=== PATIENT | male | born 1955 | race Caucasian/White ===

== ENCOUNTER → 2016-09-01 | Outpatient (CLI) | payer OTHER ==
--- NOTE | 2016-09-01 14:26 | CARD ---
APPROVED REPORT EXAM: Two-dimensional and M-mode echocardiogram with Doppler and color Doppler. Other Information Quality : Good INDICATION Atrial Fibrillation Thoracic Aortic Anuerysm 2D DIMENSIONS RVDd2.2 (2.9-3.5cm)Left Atrium(2D)3.9 (1.6-4.0cm) IVSd1.2 (0.7-1.1cm)Aortic Root(2D)4.1 (2.0-3.7cm) LVDd5.0 (3.9-5.9cm)LVOT Diameter2.2 (1.8-2.4cm) PWd1.2 (0.7-1.1cm)LVDs2.9 (2.5-4.0cm) FS (%) 30.0 %SV84.6 ml LVEF(%)60.0 (>50%) M-Mode DIMENSIONS Aortic Root4.16 (2.2-3.7cm) Aortic Valve AoV Peak Sai.102.2cm/sAoV VTI19.2cm AO Peak GR.4.2mmHgLVOT Peak Sai.105.9cm/s AO Mean GR.3mmHgAVA (VMAX)4.05cm2 TARYN (VTI)4.10cm2 Mitral Valve MV E Cmxenrog46.3cm/sMV DECEL FSAD580ay MV A Iysqavck64.2cm/sE/A Ratio0.6 Tricuspid Valve TR P. Rornxalo360mk/sRAP IVMPXNSG6zwGk TR Peak Gr.71qcHfVHDS68tjBg Pulmonary Vein S1 Awwrnhjr47.1cm/sD2 Cxrikjrv75.0cm/s PVa mtcfcgyy25kacv LEFT VENTRICLE The left ventricle is normal size. There is mild concentric left ventricular hypertrophy. The left ve ntricular systolic function is normal. The Ejection Fraction is 55-60%. There is normal LV segmental wall motion. Transmitral Doppler flow pattern is Grade I-abnormal relaxation pattern. RIGHT VENTRICLE The right ventricle is normal size. The right ventricular systolic function is normal. ATRIA The left atrium size is normal. The right atrium size is normal. The interatrial septum is intact wit h no evidence for an atrial septal defect or patent foramen ovale as noted on 2-D or Doppler imaging. AORTIC VALVE The aortic valve is normal in structure and function. Doppler and Color Flow revealed mild aortic reg urgitation. There is no significant aortic valvular stenosis. MITRAL VALVE The mitral valve is normal in structure and function. There is no evidence of mitral valve prolapse. There is no mitral valve stenosis. Doppler and Color-flow revealed trace mitral regurgitation. TRICUSPID VALVE The tricuspid valve is normal in structure and function. Doppler and Color Flow revealed trace tricus pid regurgitation. There is mild pulmonary hypertension. The PA pressure was estimated at 35 mmHg. Th ere is no tricuspid valve stenosis. PULMONIC VALVE The pulmonary valve is normal in structure and function. Doppler and Color Flow revealed trace to mil d pulmonic valvular regurgitation. There is no pulmonic valvular stenosis. GREAT VESSELS The aortic root is moderately enlarged at 4.2 cm. The ascending aorta is mildly dilated at 4.1 cm. Th e IVC is normal in size and collapses >50% with inspiration. PERICARDIAL EFFUSION There is no evidence of significant pericardial effusion. Critical Notification Critical Value: No <Conclusion> The left ventricular systolic function is normal. The Ejection Fraction is 55-60%. There is normal LV segmental wall motion. Transmitral Doppler flow pattern is Grade I-abnormal relaxation pattern. Mild aortic regurgitation. Trace mitral regurgitation. Trace tricuspid regurgitation. There is mild pulmonary hypertension. The PA pressure was estimated at 35 mmHg. There is no evidence of significant pericardial effusion.
== END | disposition home or self-care (01) ==
LOC: ECHO 12:53
PROVIDERS: ATTEND Internal Medicine Cardiovascular Disease
DX: I10 Essential (primary) hypertension (principal); I71.2 Thoracic aortic aneurysm, without rupture; I48.0 Paroxysmal atrial fibrillation
CPT/HCPCS: 93306

== ENCOUNTER → 2017-10-31 | Outpatient (CLI) | payer OTHER ==
[~2017-10-31] MED LIST: CONTRAST GIVEN MC
[2017-10-31] MEDS: IOHEXOL 300 MG/ML 100ML VIAL. IV (13:13)
== END | disposition home or self-care (01) ==
LOC: CT 12:14
DX: I71.2 Thoracic aortic aneurysm, without rupture (principal); I48.91 Unspecified atrial fibrillation; I25.10 Atherosclerotic heart disease of native coronary artery without angina pectoris
CPT/HCPCS: 71275; Q9967

== ENCOUNTER → 2018-09-20 | Outpatient (CLI) | payer OTHER ==
[2018-09-20 14:01] LABS: BASO % 0 % (0-3); EOS # 0.3 x10^3/uL (0.0-0.7); EOS % 6 % (0-3); HEMATOCRIT 45.7 % (39.0-53.0); HEMOGLOBIN 15.2 g/dL (13.0-17.5); LYMPH # 1.2 x10^3/uL (1.0-4.8); LYMPH % 25 % (24-48); MEAN CORPUSCULAR HEMOGLOBIN 29 pg (25-35); MEAN CORPUSCULAR HGB CONC 33 g/dL (31-37); MEAN CORPUSCULAR VOLUME 88 fL (79-100); MONO # 0.7 x10^3/uL (0.0-1.1); MONO % 13 % (0-9); NEUT # 2.8 x10^3uL (1.8-7.7); NEUT % 56 % (31-73); PLATELET COUNT 194 x10^3/uL (140-400); RED BLOOD COUNT 5.23 x10^6/uL (4.30-5.70); RED CELL DISTRIBUTION WIDTH 13.7 % (11.5-14.5)
[2018-09-20 14:17] LABS: ALBUMIN 3.6 g/dL (3.4-5.0); CALCIUM 9.1 mg/dL (8.5-10.1); GFR 75.7; TOTAL BILIRUBIN 1.5 mg/dL (0.2-1.0); TOTAL PROTEIN 7.2 g/dL (6.4-8.2)
[2018-09-20 14:38] LABS: CHOLESTEROL/HDL RATIO 4.2
== END | disposition home or self-care (01) ==
LOC: LAB 13:18
PROVIDERS: ATTEND Family Medicine
DX: Z00.00 Encounter for general adult medical examination without abnormal findings (principal); Z12.5 Encounter for screening for malignant neoplasm of prostate
CPT/HCPCS: 36415; 80053; 80061; 85025; G0103

== ENCOUNTER → 2019-05-22 | Day surgery (SDC) | payer OTHER ==
[~2019-05-22] MED LIST changes: -CONTRAST GIVEN MC; +DILT60CA PO; +IV RINGERS,LACTATED 1000ML 1,000 ML IV SCH; +METO-247 PO; +PROPOFOL 40 ML IV ONE; +RIVA20TA2 PO
[2019-05-22 13:01] VITALS: BP 125/71
--- NOTE | 2019-05-22 21:14 | CONS ---
DATE OF CONSULTATION: 05/22/2019 REFERRING PHYSICIAN: Ozzie Amezcua DO REASON FOR CONSULTATION: Colorectal screening. HISTORY OF PRESENT ILLNESS: A 64-year-old male with past medical history significant for atrial fibrillation, hypertension, status post ankle surgery and fistula surgery, seen for screening colon exam. Bowel habits are regular without diarrhea or constipation. There has been no melena and/or hematochezia. Weight and appetite are stable. Last colonoscopy over 10 years ago was unrevealing for polyps or cancers at that time. Family history is likewise unrevealing for colon cancer or colon polyps. He is otherwise without additional complaints. PAST MEDICAL HISTORY: Atrial fibrillation, hypertension, status post ankle surgery, status post fistula surgery. ALLERGIES: None. MEDICATIONS: Include diltiazem, metoprolol and Xarelto. FAMILY AND SOCIAL HISTORY: Noncontributory for colon cancer. He is a social drinker and nonsmoker: He is retired from the [employer] service. REVIEW OF SYSTEMS: HEENT: There is no decrease in hearing or visual acuity issues. CARDIAC: There is history of AFib and hypertension. PULMONARY: No shortness breath, productive cough or asthma. RENAL: No dysuria, frequency or hematuria. MUSCULOSKELETAL: No osteoarthrosis, arthralgias or myalgias. NEUROLOGIC: No stroke, migraine or neuropathy. HEMATOLOGIC: No bleeding, bruising or coagulopathy. DERMATOLOGIC: No skin rashes or pruritus. GASTROINTESTINAL: See history of present illness. PHYSICAL EXAMINATION: GENERAL: Reveals a well-nourished, well-developed male who is alert, cooperative, in no acute distress. VITAL SIGNS: Temperature 97.6, pulse ____, respiratory rate 18. HEENT: Reveals normocephalic, atraumatic head. Pupils and extraocular muscles are not tested. Sclerae anicteric. NECK: Supple. LUNGS: Clear. CARDIOVASCULAR: Reveals an S1, S2 without S3, S4 or appreciable murmur. ABDOMEN: Reveals a soft abdomen, normal bowel sounds, without appreciable hepatosplenomegaly. EXTREMITIES: Reveal no cyanosis, clubbing or edema. IMPRESSION AND PLAN: Colorectal screening is warranted at this time. Risks and benefits of procedure including risk of hemorrhage and perforation requiring operation were discussed. The patient is willing to proceed. Xarelto has been held since Sunday and will be resumed later today. Endoclips will be utilized if polypectomy is needed. Xarelto can be restarted to minimize the risk of thrombosis and bleeding. I would like to thank Dr. Ozzie Amezcua for allowing us to consult and participate in the patient's care. KATHY GONZALEZ MD DR: FARHAN/dorothy JOB#: [id number] / [id number] OZZIE Beckett DO
--- NOTE | 2019-05-23 14:07 | PATHOLOGY ---
[facility] Accession Number: [id number] . 01 Material submitted: . PART A: colon - ASCENDING COLON POLYP. Modifiers: ascending PART B: rectum - RECTAL POLYP . 01 Clinical history: . CRCS . 02 Diagnosis: A. Colon, ascending, biopsy: - Adenomatous polyps, two. . B. Colon, rectum, biopsy: - Hyperplastic polyps, two. (SKM:[facility]; 05/23/2019) QTP 05/23/2019 1238 Local . 02 Electronically signed: . Tonio Mckeon MD, Pathologist NPI- [id number] . 01 Gross description: . A. Received in formalin labeled "Knutson, Garland, ascending colon polyp," are 2 segments of arriaza soft tissue measuring 1.1 x 0.3 x 0.3 cm in aggregate dimensions and ranging from 0.5 to 0.6 cm in maximum dimension. The specimen is submitted entirely in cassette A1. . B. Received in formalin labeled "Knutson, Garland, rectal polyp," are 2 segments of arriaza soft tissue measuring 0.9 x 0.3 x 0.2 cm in aggregate dimensions and ranging from 0.4 to 0.5 cm in maximum dimension. The specimen is submitted entirely in cassette B1. ([facility]; 05/22/2019) TOB/TOB 05/22/2019 1834 Local . 02 Pathologist provided ICD-10: D12.2, K62.1 . 02 CPT . 767226, [id number] Specimen Comment: A courtesy copy of this report has been sent to Specimen Comment: [phone], . Specimen Comment: Report sent to / DR NETTLES Performed at: [address] [place], [place] [address] [address], [place], [place] [id number] MD Shiraz Adrian MD Phone: [phone] Performed at: [address] [id number] MD Jalil Kulkarni MD Phone: [phone]
== END ==
LOC: ENDOS 10:39
PROVIDERS: ATTEND Internal Medicine Gastroenterology
DX: Z12.11 Encounter for screening for malignant neoplasm of colon (principal); D12.2 Benign neoplasm of ascending colon; K62.1 Rectal polyp; K64.0 First degree hemorrhoids; K57.30 Diverticulosis of large intestine without perforation or abscess without bleeding; I48.91 Unspecified atrial fibrillation; I10 Essential (primary) hypertension; Z80.0 Family history of malignant neoplasm of digestive organs; Z83.71 Family history of colonic polyps; Z72.89 Other problems related to lifestyle; Z98.890 Other specified postprocedural states
CPT/HCPCS: 45380; 88305; J2704

== ENCOUNTER → 2019-08-27 | Outpatient (CLI) | payer OTHER ==
[2019-05-22 13:01] VITALS: BP 125/71
[~2019-08-27] MED LIST changes: -IV RINGERS,LACTATED 1000ML 1,000 ML IV SCH; -PROPOFOL 40 ML IV ONE
[2019-08-27 16:44] LABS: BASO % 1 % (0-3); EOS # 0.3 x10^3/uL (0.0-0.7); EOS % 6 % (0-3); HEMATOCRIT 47.1 % (39.0-53.0); HEMOGLOBIN 15.8 g/dL (13.0-17.5); LYMPH # 1.2 x10^3/uL (1.0-4.8); LYMPH % 23 % (24-48); MEAN CORPUSCULAR HEMOGLOBIN 30 pg (25-35); MEAN CORPUSCULAR HGB CONC 34 g/dL (31-37); MEAN CORPUSCULAR VOLUME 89 fL (79-100); MONO # 0.6 x10^3/uL (0.0-1.1); MONO % 12 % (0-9); NEUT # 3.2 x10^3/uL (1.8-7.7); NEUT % 59 % (31-73); PLATELET COUNT 183 x10^3/uL (140-400); RED BLOOD COUNT 5.32 x10^6/uL (4.30-5.70); RED CELL DISTRIBUTION WIDTH 13.7 % (11.5-14.5); WHITE BLOOD COUNT 5.4 x10^3/uL (4.0-11.0)
[2019-08-27 17:00] LABS: ALBUMIN 3.9 g/dL (3.4-5.0); ALBUMIN/GLOBULIN RATIO 1.2 (1.0-1.7); CALCIUM 8.8 mg/dL (8.5-10.1); GFR 75.5; POTASSIUM 4.5 mmol/L (3.5-5.1); TOTAL BILIRUBIN 1.5 mg/dL (0.2-1.0); TOTAL PROTEIN 7.2 g/dL (6.4-8.2)
[2019-08-27 17:01] LABS: CHOLESTEROL/HDL RATIO 5.1
== END | disposition home or self-care (01) ==
LOC: LAB 16:16
PROVIDERS: ATTEND Family Medicine
DX: Z12.5 Encounter for screening for malignant neoplasm of prostate (principal); Z00.00 Encounter for general adult medical examination without abnormal findings
CPT/HCPCS: 36415; 80053; 80061; 84153; 85025; G0103

== ENCOUNTER → 2020-04-23 | Outpatient (CLI) | payer OTHER ==
[2019-05-22 13:01] VITALS: BP 125/71
--- NOTE | 2020-04-23 17:57 | RAD ---
MR#: [id number] Date of Study: 04/23/2020 Ordering Physician: KIRT WALKER, Referring Physician: KIRT WALKER, Tech: Jessica Huntley, YOCASTA, RVT, RTR APPROVED REPORT Patient Location : OUT-PATIENT Indications Lower Extremity Edema : Bilateral Lesser Saphenous Veins (LSV) Significant venous reflux is noted in the Left LSV. Findings Bilateral greater saphenous veins have been previously ablated. The saphenofemoral junctions are unr emarkable but do show evidence of reflux of greater than 1 second. No obvious perforators noted. The left lesser saphenous vein has reflux from the knee to the ankle of greater than 1 second and eamon sures approximately 4.4 mm. The right lesser saphenous vein is not visualized. Critical Notification Critical Value: No <Conclusion> 1. Presumed bilateral previous greater saphenous vein ablations 2. Positive for reflux in the left lesser saphenous vein. The right lesser saphenous vein was not v isualized. Signed by : Caleb Murillo, Electronically Approved : 04/23/2020 17:57:49
--- NOTE | 2020-04-23 17:58 | RAD ---
MR#: [id number] Date of Study: 04/23/2020 Ordering Physician: KIRT WALKER, Referring Physician: KIRT WALKER, Tech: Jessica Huntley, YOCASTA, RVT, RTR APPROVED REPORT Bilateral Lower Extremity Venous Study for DVT Patient Location: OUT-PATIENT Indications Lower Extremity Edema: Bilateral Findings The bilateral lower extremity deep veins were evaluated for thrombus with color Doppler, spectral and grayscale images. On the right the grayscale images of the common femoral, superficial femoral and popliteal veins do n ot demonstrate any evidence of thrombus and these veins appear to be compressible. The below-knee vei ns were not well visualized but grossly appear to be compressible. Spectral imaging and color Doppler do not reveal any evidence of obstruction to flow with normal respirophasic variation above the knee . Below the knee there is spontaneous flow noted. On the left, the grayscale images of the common femoral, superficial femoral and popliteal veins do n ot demonstrate any evidence of thrombus and these veins appear to be compressible. The below-knee vei ns again were not well visualized but grossly appear to be compressible. Spectral imaging and color D oppler do not reveal any evidence of obstruction to flow with normal respirophasic variation above th e knee. The below-knee veins demonstrate spontaneous flow. Critical Notification Critical Value: No <Conclusion> 1. Negative for DVT in the bilateral lower extremities. Signed by : Caleb Murillo, Electronically Approved : 04/23/2020 17:58:42
== END | disposition home or self-care (01) ==
LOC: US 12:53
PROVIDERS: ATTEND Internal Medicine Cardiovascular Disease
DX: R22.43 Localized swelling, mass and lump, lower limb, bilateral (principal); M79.89 Other specified soft tissue disorders
CPT/HCPCS: 93970

== ENCOUNTER → 2020-07-30 | Outpatient (CLI) | payer OTHER ==
[2019-05-22 13:01] VITALS: BP 125/71
[2020-07-30 12:29] LABS: BASO % 1 % (0-3); EOS # 0.2 x10^3/uL (0.0-0.7); EOS % 3 % (0-3); HEMATOCRIT 42.7 % (39.0-53.0); HEMOGLOBIN 14.6 g/dL (13.0-17.5); LYMPH # 1.1 x10^3/uL (1.0-4.8); LYMPH % 19 % (24-48); MEAN CORPUSCULAR HEMOGLOBIN 30 pg (25-35); MEAN CORPUSCULAR HGB CONC 34 g/dL (31-37); MEAN CORPUSCULAR VOLUME 87 fL (79-100); MONO # 0.8 x10^3/uL (0.0-1.1); MONO % 13 % (0-9); NEUT # 3.8 x10^3/uL (1.8-7.7); NEUT % 65 % (31-73); PLATELET COUNT 172 x10^3/uL (140-400); RED BLOOD COUNT 4.89 x10^6/uL (4.30-5.70); RED CELL DISTRIBUTION WIDTH 14.4 % (11.5-14.5); WHITE BLOOD COUNT 5.9 x10^3/uL (4.0-11.0)
[2020-07-30 12:51] LABS: ALBUMIN 3.7 g/dL (3.4-5.0); ALBUMIN/GLOBULIN RATIO 1.1 (1.0-1.7); CALCIUM 8.6 mg/dL (8.5-10.1); GFR 75.2; POTASSIUM 4.2 mmol/L (3.5-5.1); TOTAL BILIRUBIN 1.6 mg/dL (0.2-1.0); TOTAL PROTEIN 7.1 g/dL (6.4-8.2)
[2020-07-30 12:52] LABS: CHOLESTEROL/HDL RATIO 3.6
[2020-07-31 02:10] LABS: HEMOGLOBIN A1C 5.6 % (4.8-5.6)
== END ==
LOC: US 11:43
PROVIDERS: ATTEND Internal Medicine Cardiovascular Disease
DX: Z12.5 Encounter for screening for malignant neoplasm of prostate (principal); E78.5 Hyperlipidemia, unspecified; R22.43 Localized swelling, mass and lump, lower limb, bilateral
CPT/HCPCS: 36415; 80053; 80061; 83036; 85025; G0103

== ENCOUNTER 2020-08-27 21:52 | Inpatient (IN) | payer OTHER ==
[~2020-08-27] VITALS: Ht 180.3 cm; Wt 106.5 kg
[2020-08-27 22:16] LABS: BASO % 0 % (0-3); EOS % 0 % (0-3); HEMATOCRIT 41.3 % (39.0-53.0); HEMOGLOBIN 13.5 g/dL (13.0-17.5); LYMPH # 0.9 x10^3/uL (1.0-4.8); LYMPH % 6 % (24-48); MEAN CORPUSCULAR HEMOGLOBIN 29 pg (25-35); MEAN CORPUSCULAR HGB CONC 33 g/dL (31-37); MEAN CORPUSCULAR VOLUME 89 fL (79-100); MONO # 1.4 x10^3/uL (0.0-1.1); MONO % 9 % (0-9); NEUT # 12.9 x10^3/uL (1.8-7.7); NEUT % 84 % (31-73); PLATELET COUNT 184 x10^3/uL (140-400); RED BLOOD COUNT 4.63 x10^6/uL (4.30-5.70); RED CELL DISTRIBUTION WIDTH 14.9 % (11.5-14.5); WHITE BLOOD COUNT 15.3 x10^3/uL (4.0-11.0)
[2020-08-27 22:22] LABS: CALCIUM 8.9 mg/dL (8.5-10.1); GFR 75.2; POTASSIUM 4.4 mmol/L (3.5-5.1)
[2020-08-27 22:57] LABS: % LYMPHS 2 % (24-48); % MONOS 8 % (0-10); % SEGS 90 % (35-66); PLT ESTIMATE ADEQUATE (ADEQUATE)
[2020-08-27 22:58] LABS: POLYCHROMASIA SLIGHT
[2020-08-27 23:00] LABS: TOXIC GRANULATION SLIGHT
[2020-08-27] MEDS ORDERED: MORPHINE SULFATE 10 MG/ML VIAL. IV ONE (23:00)
--- NOTE | 2020-08-27 23:21 | RAD ---
INDICATION: Reason: chest pain / Spl. Instructions: / History: COMPARISON: October 31, 2017 FINDINGS: Single view of chest obtained. Cardiac silhouette is unremarkable. Repeat demonstration of numerous calcified granulomas bilaterally . Mild blunting of the costophrenic angles posteriorly. Degenerative changes of spine. IMPRESSION: * No definite focal airspace consolidation. * Mild blunting of costophrenic angles posteriorly which could be from pleural thickening or small p leural effusion Electronically signed by: Lizandro French MD (08/27/2020 11:06 PM) [id number]
[2020-08-28] VITALS (17 sets, daily range): BP systolic 113–161; BP diastolic 72–105
--- NOTE | 2020-08-28 00:10 | ED.ADGEN ---
Past Medical History Past Medical History: A-Fib, Hypertension Past Surgical History: Other Additional Past Surgical Histo: ablation Smoking Status: Former Smoker Alcohol Use: Heavy General Adult EDM: Chief Complaint: CHEST PAIN HPI: HPI: Patient is 65-year-old male who presents to the emergency room complaining of substernal chest pain that feels like pressure. It radiates to both sides of his chest intermittently. He rates his pain as an 8 out of 10. He states that he had an ablation done yesterday at [facility]. He states the ablation went well. He did not have any pain until about an hour ago. He states he did drink a single beer this evening. He denies any vomiting or abdominal pain. He has not had any kind of cough or shortness of breath. He has never had chest pain previously. He has not tried anything for his pain at home. Review of Systems: Review of Systems: Complete ROS is negative unless otherwise documented in HPI Current Medications: Current Medications Medications (Trade) Dose Ordered Sig/Hilda Start Time Stop Time Status Last Admin Dose Admin Morphine Sulfate (Morphine Sulfate) 2 mg PRN Q2HR PRN 08/28/20 00:15 08/29/20 00:14 Allergies: Allergies: Allergies Coded Allergies Type Severity Reaction Last Updated Verified No Known Drug Allergies 05/22/19 No Physical Exam: PE: General: Awake, alert, NAD. Well Nourished, well hydrated. Cooperative HEENT: Atraumatic, EOMI, PERRL, airway patent, moist oral mucosa Neck: Supple, trachea midline Respiratory: CTA bilaterally, normal effort, no wheezing/crackles CV: RRR, no murmur, cap refill <2 GI: Soft, nondistended, nontender, no masses MSK: No obvious deformities Skin: Warm, dry, intact Neuro: A&O x3, speech NL, sensory and motor grossly intact, no focal deficits Psych: Normal affect, normal mood, not suicidal or homicidal Current Patient Data: Labs: Laboratory Tests Test 08/27/20 22:03 White Blood Count 15.3 x10^3/uL (4.0-11.0) H Red Blood Count 4.63 x10^6/uL (4.30-5.70) Hemoglobin 13.5 g/dL (13.0-17.5) Hematocrit 41.3 % (39.0-53.0) Mean Corpuscular Volume 89 fL (79-100) Mean Corpuscular Hemoglobin 29 pg (25-35) Mean Corpuscular Hemoglobin Concent 33 g/dL (31-37) Red Cell Distribution Width 14.9 % (11.5-14.5) H Platelet Count 184 x10^3/uL (140-400) Neutrophils (%) (Auto) 84 % (31-73) H Lymphocytes (%) (Auto) 6 % (24-48) L Monocytes (%) (Auto) 9 % (0-9) Eosinophils (%) (Auto) 0 % (0-3) Basophils (%) (Auto) 0 % (0-3) Neutrophils # (Auto) 12.9 x10^3/uL (1.8-7.7) H Lymphocytes # (Auto) 0.9 x10^3/uL (1.0-4.8) L Monocytes # (Auto) 1.4 x10^3/uL (0.0-1.1) H Eosinophils # (Auto) 0.0 x10^3/uL (0.0-0.7) Basophils # (Auto) 0.0 x10^3/uL (0.0-0.2) Segmented Neutrophils % 90 % (35-66) H Lymphocytes % 2 % (24-48) L Monocytes % 8 % (0-10) Toxic Granulation Slight Platelet Estimate Adequate (ADEQUATE) Polychromasia Slight Sodium Level 136 mmol/L (136-145) Potassium Level 4.4 mmol/L (3.5-5.1) Chloride Level 98 mmol/L (98-107) Carbon Dioxide Level 24 mmol/L (21-32) Anion Gap 14 (6-14) Blood Urea Nitrogen 22 mg/dL (8-26) Creatinine 1.0 mg/dL (0.7-1.3) Estimated GFR (Cockcroft-Gault) 75.2 Glucose Level 107 mg/dL (70-99) H Calcium Level 8.9 mg/dL (8.5-10.1) Troponin I Quantitative 2.309 ng/mL (0.000-0.055) Laboratory Tests 08/27/20 22:03 Laboratory Tests 08/27/20 22:03 Vital Signs: Vital Signs Date Time Temp Pulse Resp B/P (MAP) Pulse Ox O2 Delivery O2 Flow Rate FiO2 08/28/20 00:33 65 137/87 (104) 95 08/27/20 23:31 18 Room Air 08/27/20 22:12 98.1 98.1 EKG: EKG: [] Heart Score: Risk Factors: Risk Factors: DM, Current or recent (<one month) smoker, HTN, HLP, family history of CAD, obesity. Risk Scores: Score 0 - 3: 2.5% MACE over next 6 weeks - Discharge Home Score 4 - 6: 20.3% MACE over next 6 weeks - Admit for Clinical Observation Score 7 - 10: 72.7% MACE over next 6 weeks - Early Invasive Strategies Radiology/Procedures: Radiology/Procedures: [] Course & Med Decision Making: Course & Med Decision Making Pertinent Labs and Imaging studies reviewed. (See chart for details) Patient 65-year-old male who presents to the emergency room complaining of chest pain. Patient did have an ablation done yesterday. He is in normal sinus rhythm. Cardiac work-up was ordered. EKG is normal. Patient has an elevated troponin. This may be due to the ablation that he had yesterday, however patient continues to have chest pain. Given this will admit him for cardiac e valuation by cardiology. Will trend troponins. Dragon Disclaimer: Montse Disclaimer: This electronic medical record was generated, in whole or in part, using a voice recognition dictation system. Departure Departure Impression: Primary Impression: Chest pain Additional Impression: Elevated troponin Disposition: ADMITTED INPT THIS HOSP Condition: IMPROVED Referrals: OZZIE NETTLES DO (PCP) Problem Qualifiers PAMELA WALLACE MD Aug 28, 2020 00:10
[2020-08-28] MEDS ORDERED: MORPHINE SULFATE 2 MG/ML VIAL. IV PRN (00:15)
--- NOTE | 2020-08-28 01:00 | NUR ---
The patient, POLA REYES, 65 y/o, M admitted by ELAINE MEYERS MD, was given written information regarding hospital policies, unit procedures and contact persons. assessment done, meds discussed, as well as poc. Valuables were checked and documented in the emr. lcrn.
[2020-08-28] MEDS ORDERED: ACETAMINOPHEN 650 MG SUPP.RECT. PR PRN (06:00)
[2020-08-28] MEDS ORDERED: ACETAMINOPHEN 325 MG TABLET. PO PRN ×2 (06:00→07:15)
[2020-08-28] MEDS ORDERED: ONDANSETRON PF 4 MG/2 ML VIAL. IV PRN (06:00)
--- NOTE | 2020-08-28 06:07 | NUR ---
spoke with dr alfonso about pt's situation. see order. pradeep Addendum: 08/28/20 at 0754 by Alma Eid RN above on wrong pt. told dr alfonso that troponin raised to 14.705. see orders pradeep
--- NOTE | 2020-08-28 06:50 | PDOC1 ---
History and Physical Date of Admission Date of Admission DATE: 08/28/20 TIME: 06:46 Identification/Chief Complaint Chief Complaint Chest pain Source Source: Chart review, Patient History of Present Illness History of Present Illness Patient 65-year-old male presents to the ER with complaints of substernal chest pain started just prior to arrival in the ER yesterday. He reports chest pain 8/10, that feels more like pressure, that radiates to bilateral upper chest. He says Tylenol, ibuprofen, and antacid in addition to his home medication prior to arrival in ER, without improvement. He had ablation performed 2 days ago at [facility] for A. fib. He does admit to regular alcohol use. He denies any cough, shortness of breath, or abdominal pain. Will admit patient with cardiac consultation for further medical management. Past Medical History Past Medical History A. fib, hypertension Past Surgical History Past Surgical History Cardiac ablation Social History Smoke: Quit ALCOHOL: heavy Drugs: None Current Problem List Problem List Problems Medical Problems: (1) Chest pain Status: Acute (2) Elevated troponin Status: Acute Current Medications Current Medications Current Medications Morphine Sulfate (Morphine Sulfate) 5 mg 1X ONCE IV Last administered on 08/27/20at 23:01; Start 08/27/20 at 23:00; Stop 08/27/20 at 23:01; Status DC Morphine Sulfate (Morphine Sulfate) 2 mg PRN Q2HR PRN IV PAIN; Start 08/28/20 at 00:15; Stop 08/29/20 at 00:14 Ondansetron HCl (Zofran) 4 mg PRN Q4HRS PRN IV NAUSEA/VOMITING; Start 08/28/20 at 06:00 Acetaminophen (Tylenol) 650 mg PRN Q4HRS PRN PO TEMP OVER 100.4F OR MILD PAIN; Start 08/28/20 at 06:00 Acetaminophen (Tylenol Supp) 650 mg PRN Q4HRS PRN VA TEMP OVER 100.4F OR MILD PAIN; Start 08/28/20 at 06:00 Metoprolol Succinate (Toprol Xl) 200 mg DAILY PO ; Start 08/28/20 at 09:00 Non-Formulary Medication (Diltiazem Hcl (Diltiazem Sr 12HR)) 60 mg BID PO ; Start 08/28/20 at 09:00; Status UNV Active Scripts Active Reported Xarelto (Rivaroxaban) 20 Mg Tablet 20 Mg PO DAILY Metoprolol Succinate ( Xl ) (Metoprolol Succinate) 100 Mg Tab.er.24h 200 Mg PO BID Diltiazem Sr 12HR (Diltiazem Hcl) 60 Mg Cap.er.12h 60 Mg PO BID Allergies Allergies: Coded Allergies: No Known Drug Allergies (Unverified , 05/22/19) ROS Review of System GENERAL: No history of weight change, weakness or fevers. SKIN: No bruising, hair changes or rashes. EYES: No blurred, double or loss of vision. NOSE AND THROAT: No history of nosebleeds, hoarseness or sore throat. HEART: Chest pain. Denies palpitations. LUNGS: Denies cough, hemoptysis, wheezing or shortness of breath. GASTROINTESTINAL: Denies nausea, vomiting, abdominal pain. GENITOURINARY: Denies dysuria, frequency, urgency, hematuria. NEUROLOGIC: Denies history of numbness, tingling, tremor or weakness. PSYCHIATRIC: Denies anxiety, denies depression. ENDOCRINE: No history of heat or cold intolerance, polyuria or polydipsia. EXTREMITIES: Denies muscle weakness, joint pain, pain on walking or stiffness. Physical Exam Physical Exam General: Alert, Oriented X3, Cooperative, No acute distress HEENT: PERRLA, EOMI Lungs: Clear to auscultation, Normal air movement Heart: RRR, no murmurs Cardiovascular: S1, S2 Abdomen: Normal bowel sounds, Soft, No tenderness Extremities: No clubbing, No cyanosis Skin: No rashes, No significant lesion Neuro: Normal speech, Normal tone, Sensation intact Psych/Mental Status: Mental status NL, Mood NL Vitals Vitals Vital Signs Date Time Temp Pulse Resp B/P (MAP) Pulse Ox O2 Delivery O2 Flow Rate FiO2 08/28/20 03:24 98.9 69 16 138/78 (98) 93 Room Air 98.9 Labs Labs Laboratory Tests Test 08/27/20 22:03 08/28/20 00:58 White Blood Count 15.3 x10^3/uL (4.0-11.0) Red Blood Count 4.63 x10^6/uL (4.30-5.70) Hemoglobin 13.5 g/dL (13.0-17.5) Hematocrit 41.3 % (39.0-53.0) Mean Corpuscular Volume 89 fL (79-100) Mean Corpuscular Hemoglobin 29 pg (25-35) Mean Corpuscular Hemoglobin Concent 33 g/dL (31-37) Red Cell Distribution Width 14.9 % (11.5-14.5) Platelet Count 184 x10^3/uL (140-400) Neutrophils (%) (Auto) 84 % (31-73) Lymphocytes (%) (Auto) 6 % (24-48) Monocytes (%) (Auto) 9 % (0-9) Eosinophils (%) (Auto) 0 % (0-3) Basophils (%) (Auto) 0 % (0-3) Neutrophils # (Auto) 12.9 x10^3/uL (1.8-7.7) Lymphocytes # (Auto) 0.9 x10^3/uL (1.0-4.8) Monocytes # (Auto) 1.4 x10^3/uL (0.0-1.1) Eosinophils # (Auto) 0.0 x10^3/uL (0.0-0.7) Basophils # (Auto) 0.0 x10^3/uL (0.0-0.2) Segmented Neutrophils % 90 % (35-66) Lymphocytes % 2 % (24-48) Monocytes % 8 % (0-10) Toxic Granulation Slight Platelet Estimate Adequate (ADEQUATE) Polychromasia Slight Sodium Level 136 mmol/L (136-145) Potassium Level 4.4 mmol/L (3.5-5.1) Chloride Level 98 mmol/L (98-107) Carbon Dioxide Level 24 mmol/L (21-32) Anion Gap 14 (6-14) Blood Urea Nitrogen 22 mg/dL (8-26) Creatinine 1.0 mg/dL (0.7-1.3) Estimated GFR (Cockcroft-Gault) 75.2 Glucose Level 107 mg/dL (70-99) Calcium Level 8.9 mg/dL (8.5-10.1) Troponin I Quantitative 2.309 ng/mL (0.000-0.055) 14.705 ng/mL (0.000-0.055) Laboratory Tests Test 08/27/20 22:03 08/28/20 00:58 White Blood Count 15.3 x10^3/uL (4.0-11.0) Red Blood Count 4.63 x10^6/uL (4.30-5.70) Hemoglobin 13.5 g/dL (13.0-17.5) Hematocrit 41.3 % (39.0-53.0) Mean Corpuscular Volume 89 fL (79-100) Mean Corpuscular Hemoglobin 29 pg (25-35) Mean Corpuscular Hemoglobin Concent 33 g/dL (31-37) Red Cell Distribution Width 14.9 % (11.5-14.5) Platelet Count 184 x10^3/uL (140-400) Neutrophils (%) (Auto) 84 % (31-73) Lymphocytes (%) (Auto) 6 % (24-48) Monocytes (%) (Auto) 9 % (0-9) Eosinophils (%) (Auto) 0 % (0-3) Basophils (%) (Auto) 0 % (0-3) Neutrophils # (Auto) 12.9 x10^3/uL (1.8-7.7) Lymphocytes # (Auto) 0.9 x10^3/uL (1.0-4.8) Monocytes # (Auto) 1.4 x10^3/uL (0.0-1.1) Eosinophils # (Auto) 0.0 x10^3/uL (0.0-0.7) Basophils # (Auto) 0.0 x10^3/uL (0.0-0.2) Segmented Neutrophils % 90 % (35-66) Lymphocytes % 2 % (24-48) Monocytes % 8 % (0-10) Toxic Granulation Slight Platelet Estimate Adequate (ADEQUATE) Polychromasia Slight Sodium Level 136 mmol/L (136-145) Potassium Level 4.4 mmol/L (3.5-5.1) Chloride Level 98 mmol/L (98-107) Carbon Dioxide Level 24 mmol/L (21-32) Anion Gap 14 (6-14) Blood Urea Nitrogen 22 mg/dL (8-26) Creatinine 1.0 mg/dL (0.7-1.3) Estimated GFR (Cockcroft-Gault) 75.2 Glucose Level 107 mg/dL (70-99) Calcium Level 8.9 mg/dL (8.5-10.1) Troponin I Quantitative 2.309 ng/mL (0.000-0.055) 14.705 ng/mL (0.000-0.055) Images Images INDICATION: Reason: chest pain / Spl. Instructions: / History: COMPARISON: October 31, 2017 FINDINGS: Single view of chest obtained. Cardiac silhouette is unremarkable. Repeat demonstration of numerous calcified granulomas bilaterally. Mild blunting of the costophrenic angles posteriorly. Degenerative changes of spine. IMPRESSION: * No definite focal airspace consolidation. * Mild blunting of costophrenic angles posteriorly which could be from pleural thickening or small pleural effusion VTE Prophylaxis Ordered VTE Prophylaxis Devices: Yes VTE Pharmacological Prophylaxi: Yes Assessment/Plan Assessment/Plan NSTEMI Atrial fibrillation Plan: Consultation with cardiology Will hold home Xarelto for possible cardiac intervention Morphine, Zofran as needed Resume home medications FEN - NPO; then cardiac diet PPX - Xarelto FULL CODE Dispo - inpatient for above Justifications for Admission Other Justification MIKAYLA LONGORIA MD Aug 28, 2020 06:50
[2020-08-28] MEDS ORDERED: BISACODYL 10 MG SUPP.RECT. PR PRN (07:15)
[2020-08-28] MEDS ORDERED: MAGNESIUM HYDROXIDE 2,400 MG/30 ML ORAL.SUSP. PO PRN (07:15)
[2020-08-28] MEDS ORDERED: ZOLPIDEM 5 MG TABLET. PO PRN (07:15)
[2020-08-28] MEDS: DILTIAZEM HCL 60 MG PO SCH ×2 (09:00→21:00)
--- NOTE | 2020-08-28 09:04 | PDOC2 ---
CARDIOLOGY CONSULT NOTE DATE OF SERVICE: DATE: 08/28/20 TIME: 08:57 CHIEF COMPLAINT: Chest pain HPI: Mr. Knutson is a pleasant 65-year-old man who comes into the hospital today for evaluation of chest pain. He has a past medical history as noted below and underwent an A. fib ablation on morning. He was discharged home the same day without any acute complications. Approximately 36 hours later he had sudden onset of chest pain with radiation to both sides of his chest which prompted admission to the ER. Upon initial ER evaluation he was noted to have an elevated troponin and this was felt to be related to his recent ablation and he was admitted for monitoring. Since admission he has not had any recurrence of chest pain but does have a progressively elevated troponin to 18 this morning. His EKG initially was reportedly unremarkable in the ER. PMHX: 1. Hypertension 2. Paroxysmal atrial fibrillation SOCHX: He is retired. Occasional alcohol and no tobacco or illicit drug use FAMHX: Noncontributory CURRENT MEDS: Current Medications Medications (Trade) Dose Ordered Sig/Hilda Route PRN Reason Start Time Stop Time Status Last Admin Dose Admin Morphine Sulfate (Morphine Sulfate) 5 mg 1X ONCE IV 08/27/20 23:00 08/27/20 23:01 DC 08/27/20 23:01 ALLERGIES: Allergies Coded Allergies Type Severity Reaction Last Updated Verified No Known Drug Allergies 05/22/19 No ROS: Negative for 10 out of 14 systems reviewed unless otherwise mentioned above in HPI PHYSICAL EXAM: Vital Signs/I&O: Vital Signs Date Time Temp Pulse Resp B/P (MAP) Pulse Ox O2 Delivery O2 Flow Rate FiO2 08/28/20 07:00 97.7 60 18 129/82 (98) 94 Room Air 97.7 I & O 08/27/20 08/27/20 08/28/20 15:00 23:00 07:00 Output Total 375 ml Balance -375 ml Physical Exam: GEN.: No apparent distress. Alert and oriented. HEENT: Head is normocephalic, atraumatic NECK: Supple. LUNGS: Clear to auscultation. HEART: RRR, S1, S2 present. Peripheral pulses intact ABDOMEN: Soft, nontender. Positive bowel sounds. EXTREMITIES: Without any cyanosis. NEUROLOGIC: Normal speech, normal tone PSYCHIATRIC: Normal affect, normal mood. SKIN: No ulcerations DIAGNOSTIC TESTING: EKG and telemetry are unremarkable Chest x-ray is unremarkable Troponin elevated to 18 ASSESSMENT: 1. NSTEMI - Given his elevating labs, this is less likely related to his ablation, ddx includes myopericarditis versus true NSTEMI. 2. HTN 3. Dyslipidemia. PLAN: 1. Case was discussed with his primary registered mail clerk, the patient and ultimately given that he has troponin trending upwards to a value which would not usually correlate with an atrial fibrillation ablation event and also given his traditional risk factors with male gender, hypertension and age with his symptomatology consistent with an anginal episode we will rule out any occult coronary disease with a cardiac catheterization. Risks and benefits were discussed with the patient. If this coronary angiogram is unremarkable then we will presume that this is myopericarditis and we will also obtain an echocardiogram to rule out any pericardial effusion at the time of his cardiac catheterization. MARTIN CATALAN MD Aug 28, 2020 09:04
[2020-08-28] MEDS ORDERED: ASPIRIN 325 MG TABLET PO ONE (09:30)
[2020-08-28] MEDS ORDERED: IOHEXOL 300 MG/ML 100ML VIAL. ONE (09:31)
[2020-08-28] MEDS ORDERED: LIDOCAINE 1% PF 2 ML VIAL. ONE (09:31)
[2020-08-28] MEDS: METOPROLOL SUCC 24HR ER 100 MG TAB.ER.24H. PO SCH (09:32)
[2020-08-28] MEDS ORDERED: fentaNYL PF VIAL 100 MCG/2 ML VIAL ONE (09:52)
[2020-08-28] MEDS ORDERED: MIDAZOLAM HCL/PF 5 MG/5 ML VIAL. ONE (09:52)
[2020-08-28] MEDS ORDERED: VERAPAMIL 5 MG/2 ML VIAL. ONE (09:53)
[2020-08-28] MEDS ORDERED: NITROGLYCERIN 200 MCG/2 ML SYRINGE FOR CATH/VASC LAB. ONE (09:53)
[2020-08-28] MEDS ORDERED: HEPARIN for IV BOLUS 10,000 UNIT/10 ML VIAL. ONE (09:53)
[2020-08-28] MEDS ORDERED: fentaNYL PF VIAL 100 MCG/2 ML VIAL IV ONE (10:30)
[2020-08-28] MEDS ORDERED: IOHEXOL 300 MG/ML 100ML VIAL. IART ONE (10:30)
[2020-08-28] MEDS ORDERED: MIDAZOLAM HCL/PF 5 MG/5 ML VIAL. IV ONE (10:30)
[2020-08-28] MEDS ORDERED: LIDOCAINE 1% PF 2 ML VIAL. INJ ONE (10:30)
[2020-08-28] MEDS ORDERED: NITROGLYCERIN 200 MCG/2 ML SYRINGE FOR CATH/VASC LAB. IART ONE (10:30)
[2020-08-28] MEDS ORDERED: HEPARIN for IV BOLUS 10,000 UNIT/10 ML VIAL. IART ONE (10:30)
[2020-08-28] MEDS ORDERED: VERAPAMIL 5 MG/2 ML VIAL. IART ONE (10:30)
[2020-08-28] MEDS ORDERED: HEPARIN for IV BOLUS 10,000 UNIT/10 ML VIAL. IV ONE (10:45)
[2020-08-28] MEDS ORDERED: CONTRAST GIVEN. MC PRN (10:45)
[2020-08-28] MEDS ORDERED: CLOPIDOGREL BISULFATE 75 MG TABLET ONE (10:47)
[2020-08-28] MEDS ORDERED: CLOPIDOGREL BISULFATE 75 MG TABLET PO ONE (11:00)
--- NOTE | 2020-08-28 11:28 | PDOC ---
MODERATE SEDATION ASSESSMENT RISKS/ALTERNATIVES Risks/Alternatives Risks and alternatives of this type of sedation and procedure discussed with: RISK/ALTERNATIVES: Patient H & P ON CHART H & P H & P on chart and reviewed for co-morbid conditions and appropriate labs. H&P ON CHART: Yes STATUS PREG STATUS ASSESSED: N/A MEDS/ALLERGIES REVIEWED Meds/Allergies Reviewed Medications and Allergies including time and route of recently administered narcotics and sedatives. MEDS/ALLERGIES REVIEWED: Yes ASA RATING ASA RATING: II AIRWAY ASSESSMENT Airway Assessment Airway patency, oral function limitations, presence of caps, crowns, dentures, partials, and ability to extend neck assessed. AIRWAY ASSESSMENT: Yes MALLAMPATI SCORE MALLAMPATI SCORE: III PRE-SEDATION ASSESSMENT PRE-SEDATION ASSESSMENT: Yes (late entry) MARTIN CATALAN MD Aug 28, 2020 11:28
--- NOTE | 2020-08-28 11:29 | PDOC4 ---
BRIEF OPERATIVE NOTE Date: Aug 28, 2020 Pre-Op Diagnosis nstemi Post-Op Diagnosis nstemi Procedure Performed [facility] Surgeon nathalia Family Development Specialist jacque EBL 20 ml Anesthesiologist none Anesthesia Type: Conscious Sedation Specimens Obtained none Findings One vessel CAD, small vessel non-intervenable Complications none MARTIN CATALAN MD Aug 28, 2020 11:29
[2020-08-28] MEDS: RIVAROXABAN 10 MG TABLET. PO SCH (17:59)
[2020-08-28] MEDS: ATORVASTATIN CALCIUM 40 MG TABLET. PO SCH (21:25)
[2020-08-29 02:44] VITALS: BP 162/95
[2020-08-29 05:16] LABS: CHOLESTEROL/HDL RATIO 3.4
[2020-08-29 07:00] VITALS: BP 146/83
[2020-08-29] MEDS ORDERED: CLOPIDOGREL BISULFATE 75 MG TABLET PO SCH (08:00)
[2020-08-29] MEDS: METOPROLOL SUCC 24HR ER 100 MG TAB.ER.24H. PO SCH (08:27)
--- NOTE | 2020-08-29 10:13 | PDOC ---
CARDIOLOGY PROGRESS NOTE SUBJECTIVE: No new issues overnight. OBJECTIVE: Vital Signs/I&O: Vital Signs Date Time Temp Pulse Resp B/P (MAP) Pulse Ox O2 Delivery O2 Flow Rate FiO2 08/29/20 08:27 78 146/83 08/29/20 08:00 Room Air 08/29/20 07:00 98.6 20 96 98.6 08/28/20 11:01 2.0 I & O 08/28/20 08/28/20 08/29/20 15:00 23:00 07:00 Intake Total 250 ml 500 ml 0 ml Output Total 350 ml Balance 250 ml 150 ml 0 ml Objective: GEN.: No apparent distress. Alert and oriented. HEENT: Head is normocephalic, atraumatic NECK: Supple. LUNGS: Clear to auscultation. HEART: RRR, S1, S2 present. Peripheral pulses intact ABDOMEN: Soft, nontender. Positive bowel sounds. EXTREMITIES: Without any cyanosis. NEUROLOGIC: Normal speech, normal tone PSYCHIATRIC: Normal affect, normal mood. SKIN: No ulcerations CURRENT MEDICATIONS: Current Medications Medications (Trade) Dose Ordered Sig/Hilda Route PRN Reason Start Time Stop Time Status Last Admin Dose Admin Nitroglycerin (Nitroglycerin) 200 mcg 1X ONCE IART 08/28/20 10:30 08/28/20 10:34 DC 08/28/20 10:52 Verapamil HCl (Verapamil) 2.5 mg 1X ONCE IART 08/28/20 10:30 08/28/20 10:34 DC 08/28/20 10:53 Heparin Sodium (Porcine) (Heparin Sodium) 2,500 unit 1X ONCE IART 08/28/20 10:30 08/28/20 10:34 DC 08/28/20 10:58 Heparin Sodium/ Sodium Chloride (HEPARIN for ARTERIAL LINE FLUSH) 1,000 unit 1X ONCE IART 08/28/20 10:30 08/28/20 10:34 DC 08/28/20 10:52 Heparin Sodium/ Sodium Chloride (HEPARIN for ARTERIAL LINE FLUSH) 1,000 unit 1X ONCE IART 08/28/20 10:30 08/28/20 10:34 DC 08/28/20 10:52 Midazolam HCl (Versed) 5 mg 1X ONCE IV 08/28/20 10:30 08/28/20 10:34 DC 08/28/20 10:53 Fentanyl Citrate (Fentanyl 2ml Vial) 100 mcg 1X ONCE IV 08/28/20 10:30 08/28/20 10:34 DC 08/28/20 10:53 Iohexol (Omnipaque 300 Mg/ml) 100 ml 1X ONCE IART 08/28/20 10:30 08/28/20 10:34 DC 08/28/20 10:52 Lidocaine HCl (Xylocaine-Mpf 1% 2ml Vial) 2 ml 1X ONCE INJ 08/28/20 10:30 08/28/20 10:34 DC 08/28/20 10:52 Heparin Sodium (Porcine) (Heparin Sodium) 5,000 unit 1X ONCE IV 08/28/20 10:45 08/28/20 10:46 DC 08/28/20 11:01 Clopidogrel Bisulfate (Plavix) 600 mg 1X ONCE PO 08/28/20 11:00 08/28/20 11:01 DC 08/28/20 10:54 Rivaroxaban (Xarelto) 20 mg DAILYWSUP PO 08/28/20 17:00 08/28/20 17:59 Clopidogrel Bisulfate (Plavix) 75 mg DAILYWBKFT PO 08/29/20 08:00 08/29/20 08:27 Atorvastatin Calcium (Lipitor) 40 mg QHS PO 08/28/20 21:00 08/28/20 21:25 DIAGNOSTIC TESTING: Labs pending Labs: Laboratory Tests Test 08/29/20 04:30 Cholesterol Level 163 mg/dL (0-200) LDL Cholesterol, Calculated 101 mg/dL (0-100) H VLDL Cholesterol, Calculated 14 mg/dL (0-40) Non-HDL Cholesterol Calculated 115 mg/dL (0-129) Cholesterol/HDL Ratio 3.4 ASSESSMENT: 1. NSTEMI 2. PAF PLAN: 1. Continue all home meds and add plavix 75mg daily. Supportive care. 2. Await echo and troponin. If trop downtrending and echo unremarkable, then can go home. Thanks. Justicifation of Admission Dx: Justifications for Admission: Justification of Admission Dx: Yes MARTIN CATALAN MD Aug 29, 2020 10:13
[2020-08-29 11:00] VITALS: BP 144/90
--- NOTE | 2020-08-29 11:44 | EKG ---
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
--- NOTE | 2020-08-29 11:50 | PDOC ---
[facility] PROGRESS NOTE Date of Service DOS: DATE: 08/29/20 TIME: 11:45 Chief Complaint Chief Complaint Assessment/Plan NSTEMI Atrial fibrillation Plan: Consultation with cardiology Will hold home Xarelto for possible cardiac intervention Morphine, Zofran as needed Resume home medications FEN - NPO; then cardiac diet PPX - Xarelto FULL CODE Dispo - inpatient for above History of Present Illness History of Present Illness Patient 65-year-old male presents to the ER with complaints of substernal chest pain started just prior to arrival in the ER yesterday. He reports chest pain 03/29, that feels more like pressure, that radiates to bilateral upper chest. He says Tylenol, ibuprofen, and antacid in addition to his home medication prior to arrival in ER, without improvement. He had ablation performed 2 days ago at [place] for A. fib. He does admit to regular alcohol use. He denies any cough, shortness of breath, or abdominal pain. Will admit patient with cardiac consultation for further medical management. 08/29: Patient seen and examined at bedside. Denies any chest pain or shortness of breath. Had left heart cath yesterday showing one-vessel CAD. Recommended medical management with Plavix. Echocardiogram pending. May discharge today pending cardiology disposition. Vitals/I&O Vitals/I&O: Vital Signs Date Time Temp Pulse Resp B/P (MAP) Pulse Ox O2 Delivery O2 Flow Rate FiO2 08/29/20 08:27 78 146/83 08/29/20 08:00 Room Air 08/29/20 07:00 98.6 20 96 98.6 08/28/20 11:01 2.0 I & O 08/28/20 08/28/20 08/29/20 15:00 23:00 07:00 Intake Total 250 ml 500 ml 0 ml Output Total 350 ml Balance 250 ml 150 ml 0 ml Physical Exam General: Alert, No acute distress Heart: Other (Irregularly irregular) Lungs: Clear, Wheezing Abdomen: Normal bowel sounds, Soft, No tenderness Extremities: No clubbing, No cyanosis Skin: No rashes, No breakdown Labs Labs: Laboratory Tests Test 08/29/20 04:30 08/29/20 10:26 Triglycerides Level 71 mg/dL (0-150) Cholesterol Level 163 mg/dL (0-200) LDL Cholesterol, Calculated 101 mg/dL (0-100) VLDL Cholesterol, Calculated 14 mg/dL (0-40) Non-HDL Cholesterol Calculated 115 mg/dL (0-129) HDL Cholesterol 48 mg/dL (40-60) Cholesterol/HDL Ratio 3.4 Troponin I Quantitative 5.472 ng/mL (0.000-0.055) Assessment and Plan Assessmemt and Plan Problems Medical Problems: (1) Chest pain Status: Acute (2) Elevated troponin Status: Acute Comment Review of Relevant I have reviewed the following items kristal (where applicable) has been applied. Medications: Current Medications Medications (Trade) Dose Ordered Sig/Hilda Route PRN Reason Start Time Stop Time Status Last Admin Dose Admin Rivaroxaban (Xarelto) 20 mg DAILYWSUP PO 08/28/20 17:00 08/28/20 17:59 Clopidogrel Bisulfate (Plavix) 75 mg DAILYWBKFT PO 08/29/20 08:00 08/29/20 08:27 Atorvastatin Calcium (Lipitor) 40 mg QHS PO 08/28/20 21:00 08/28/20 21:25 Justifications for Admission Other Justification MIKAYLA LONGORIA MD Aug 29, 2020 11:50
[2020-08-29 15:00] VITALS: BP 140/94
[2020-08-29] MEDS ORDERED: dilTIAZem IV PUSH 25 MG/5 ML VIAL IVP ONE (15:45)
[2020-08-29 15:55] VITALS: BP 140/94
[2020-08-29] MEDS ORDERED: METO-247 PO (17:18)
[2020-08-29] MEDS ORDERED: ATOR40TA59 PO (17:18)
[2020-08-29] MEDS ORDERED: RIVA20TA2 PO (17:18)
[2020-08-29] MEDS ORDERED: DILT60CA PO (17:18)
[2020-08-29] MEDS ORDERED: CLOP75TA PO (17:18)
--- NOTE | 2020-08-29 17:24 | PDOC3 ---
Discharge Summary Visit Information Date of Admission: Aug 28, 2020 Date of Discharge: Aug 29, 2020 Final Diagnosis Problems Medical Problems: (1) Chest pain Status: Acute (2) Elevated troponin Status: Acute Brief Hospital Course Allergies Allergies Coded Allergies Type Severity Reaction Last Updated Verified No Known Drug Allergies 05/22/19 No Vital Signs Vital Signs Date Time Temp Pulse Resp B/P (MAP) Pulse Ox O2 Delivery O2 Flow Rate FiO2 08/29/20 15:55 122 140/94 08/29/20 15:00 97.9 20 93 Room Air 97.9 08/28/20 11:01 2.0 Lab Results Laboratory Tests Test 08/27/20 22:03 08/28/20 00:58 08/28/20 06:51 08/28/20 07:35 White Blood Count 15.3 x10^3/uL (4.0-11.0) Red Blood Count 4.63 x10^6/uL (4.30-5.70) Hemoglobin 13.5 g/dL (13.0-17.5) Hematocrit 41.3 % (39.0-53.0) Mean Corpuscular Volume 89 fL (79-100) Mean Corpuscular Hemoglobin 29 pg (25-35) Mean Corpuscular Hemoglobin Concent 33 g/dL (31-37) Red Cell Distribution Width 14.9 % (11.5-14.5) Platelet Count 184 x10^3/uL (140-400) Neutrophils (%) (Auto) 84 % (31-73) Lymphocytes (%) (Auto) 6 % (24-48) Monocytes (%) (Auto) 9 % (0-9) Eosinophils (%) (Auto) 0 % (0-3) Basophils (%) (Auto) 0 % (0-3) Neutrophils # (Auto) 12.9 x10^3/uL (1.8-7.7) Lymphocytes # (Auto) 0.9 x10^3/uL (1.0-4.8) Monocytes # (Auto) 1.4 x10^3/uL (0.0-1.1) Eosinophils # (Auto) 0.0 x10^3/uL (0.0-0.7) Basophils # (Auto) 0.0 x10^3/uL (0.0-0.2) Segmented Neutrophils % 90 % (35-66) Lymphocytes % 2 % (24-48) Monocytes % 8 % (0-10) Toxic Granulation Slight Platelet Estimate Adequate (ADEQUATE) Polychromasia Slight Sodium Level 136 mmol/L (136-145) Potassium Level 4.4 mmol/L (3.5-5.1) Chloride Level 98 mmol/L (98-107) Carbon Dioxide Level 24 mmol/L (21-32) Anion Gap 14 (6-14) Blood Urea Nitrogen 22 mg/dL (8-26) Creatinine 1.0 mg/dL (0.7-1.3) Estimated GFR (Cockcroft-Gault) 75.2 Glucose Level 107 mg/dL (70-99) Calcium Level 8.9 mg/dL (8.5-10.1) Troponin I Quantitative 2.309 ng/mL (0.000-0.055) 14.705 ng/mL (0.000-0.055) 18.512 ng/mL (0.000-0.055) Coronavirus (PCR) Not detected (Not Detected) SARS-CoV-2 Antigen (Rapid) Negative (NEGATIVE) Test 08/29/20 04:30 08/29/20 10:26 Triglycerides Level 71 mg/dL (0-150) Cholesterol Level 163 mg/dL (0-200) LDL Cholesterol, Calculated 101 mg/dL (0-100) VLDL Cholesterol, Calculated 14 mg/dL (0-40) Non-HDL Cholesterol Calculated 115 mg/dL (0-129) HDL Cholesterol 48 mg/dL (40-60) Cholesterol/HDL Ratio 3.4 Troponin I Quantitative 5.472 ng/mL (0.000-0.055) Laboratory Tests Test 08/29/20 04:30 08/29/20 10:26 Triglycerides Level 71 mg/dL (0-150) Cholesterol Level 163 mg/dL (0-200) LDL Cholesterol, Calculated 101 mg/dL (0-100) VLDL Cholesterol, Calculated 14 mg/dL (0-40) Non-HDL Cholesterol Calculated 115 mg/dL (0-129) HDL Cholesterol 48 mg/dL (40-60) Cholesterol/HDL Ratio 3.4 Troponin I Quantitative 5.472 ng/mL (0.000-0.055) Brief Hospital Course Mr. Knutson is a 65 old male who presented with NSTEMI, A. fib. Consultations with cardiology. Patient was taken to Gerontological Nurse Practitioner the same day of admission. He had left heart cath showing one-vessel CAD; this is a small specimen not intervenable. Patient was placed on Plavix. He was stable for discharge home with PCP and cardiology follow-up. Discharge Information Condition at Discharge: Stable Follow Up: Weeks Disposition/Orders: D/C to Home Scheduled Atorvastatin Calcium (Atorvastatin Calcium) 40 Mg Tablet, 40 MG PO QHS for CAD, #30 Ref 2 Prescribed by: MIKAYLA LONGORIA MD on 08/29/208 Clopidogrel Bisulfate (Clopidogrel) 75 Mg Tablet, 75 MG PO DAILYWBKFT for CAD, #30 Ref 3 Prescribed by: MIKAYLA LONGORIA MD on 08/29/208 Diltiazem Hcl (Diltiazem Sr 12HR) 60 Mg Cap.er.12h, 60 MG PO BID for hypertension, #60 Ref 2 Prescribed by: MIKAYLA LONGORIA MD on 08/29/208 Metoprolol Succinate (Metoprolol Succinate ( Xl )) 100 Mg Tab.er.24h, 200 MG PO DAILY for htn, #30 Ref 2 Prescribed by: MIKAYLA LONGORIA MD on 08/29/208 Rivaroxaban (Xarelto) 20 Mg Tablet, 20 MG PO DAILY for ATRIAL FIB, #30 Ref 2 Prescribed by: MIKAYLA LONGORIA MD on 08/29/208 Justicifation of Admission Dx: Justifications for Admission: Justification of Admission Dx: Yes MIKAYLA LONGORIA MD Aug 29, 2020 17:24
[2020-08-29] MEDS: RIVAROXABAN 10 MG TABLET. PO SCH (17:38)
[2020-08-29] MEDS: ATORVASTATIN CALCIUM 40 MG TABLET. PO SCH (17:38)
--- NOTE | 2020-08-29 17:45 | NUR ---
Discharge Note: POLA REYES Discharge instructions and discharge home medications reviewed with Patient and a copy given. All questions have been answered and understanding verbalized. Belongings taken with patient upon discharge. Patient instructed to follow up with Cardiology and Primary Care Doctor. The following instructions and handouts were given: Lipitor, Plavix, Chest pain, Cardiac Catheterization After Care Discontinued lines and drains: Peripheral IV intact. Patient discharged to Home or Self Care with Self via Ambulated
--- NOTE | 2020-08-31 10:16 | CARD ---
MR#: [id number] Date of Study: 08/28/2020 Ordering Physician: MARTIN CATALAN, Referring Physician: MARTIN CATALAN, Tech: RT Kenrick (R) APPROVED REPORT Technologist: Rick Song RT (R) Nurse: Ne Ware R.N. Procedure(s) performed: flouro time 7.7 minutes dose 113 Gycm2 contrast 63 cc's [id number] moderate sedation 53 mintues [facility], Coronary angiography HISTORY : The patient is a 65 year-old male with a history of . [facility] Clinical Frailty Scale [facility] Clinical Frailty Scale: Managing Well Heart Failure Heart Failure: Yes If Yes, Newly Diagnosed: Yes If Yes, HF Type: Diastolic If Yes, NYHA Class: Class II PROCEDURE NARRATIVE Clinical information: 65-year-old male with a past medical history of hypertension with recent atrial fibrillation ablation therapy who presented 36 hours later with escalating troponin with a peak of 16. Therefore he was t aken to the cardiac catheterization laboratory. Informed consent: Written informed consent was obtained from the patient after adequate discussion of the risks and ayesha efits of the procedure. Procedure details: ACCESS: The right wrist was prepped and draped in usual sterile fashion. Under 1% lidocaine local anesthesia a 6 [place] Terumo sheath was placed in the right radial artery via the Seldinger technique. DIAGNOSTIC ANGIOGRAPHY: Right and left coronary arteries were engaged with a 6 [place] TIG catheter. Diagnostic angiography i n multiple views were obtained. Next, a 6 [place] pigtail catheter was placed in the left ventricle a nd a LVEDP was measured. A pullback was performed. All catheters were exchanged over J-tip guidewir e. FINDINGS: ======= Aorta: 110/80 LVEDP: 15 mmHg Left ventriculogram: Limited bedside echocardiogram revealed normal LV function without any evidence of pericardial effusion Coronary angiography: LM: Large caliber vessel with normal angiographic appearance LAD: Moderate caliber vessel with mild luminal irregularities D1: Small caliber vessel with normal angiographic appearance LCX: Moderate caliber non-dominant vessel with mild luminal irregularities OM1: Moderate caliber vessel with normal angiographic appearance RCA: Large caliber dominant vessel with mild luminal irregularities of up to 30% RPDA: Large caliber vessel with mild luminal irregularities RPL: Small caliber vessel with a proximal 100% occlusion with [id number] collaterals. This vessel is less than 2 mm in size and likely the culprit for the troponin elevation CLOSURE: At case completion the right radial sheath was removed and a Terumo radial band was applied with 11 m L of air. Hemostasis was achieved. COMPLICATIONS: No acute complications noted Conclusion 1. Normal left-sided filling pressures 2. One-vessel coronary artery disease involving a small caliber (less than 2 mm) right posterior lat eral branch likely the culprit vessel for the troponin elevation. Recommendations 1. Continue Xarelto for anticoagulation 2. Start Plavix 75 mg daily 3. High-dose statin therapy 4. Cardiac rehab referral 5. Aggressive risk factor modification and medical management. Signed by : Martin Catalan, Electronically Approved : 08/28/2020 11:27:13
--- NOTE | 2020-08-31 10:16 | CARD ---
MR#: [id number] Date of Study: 08/29/2020 Ordering Physician: MARTIN CATALAN, Referring Physician: MARTIN CATALAN, Tech: Re Brannon RUST APPROVED REPORT EXAM: Two-dimensional and M-mode echocardiogram with Doppler and color Doppler. Other Information Quality : Good Rhythm : Atrial Fibrillation INDICATION Non STEMI S/P Ablation 08/26/20-[facility] 2D DIMENSIONS RVDd2.9 (2.9-3.5cm)Left Atrium(2D)5.0 (1.6-4.0cm) IVSd1.1 (0.7-1.1cm)Aortic Root(2D)4.4 (2.0-3.7cm) LVDd4.4 (3.9-5.9cm)LVOT Diameter2.3 (1.8-2.4cm) PWd1.1 (0.7-1.1cm)LVDs3.5 (2.5-4.0cm) FS (%) 30.0 %SV38.3 ml LVEF(%)60.0 (>50%) Aortic Valve AoV Peak Sai.111.6cm/Will Peak GR.5.0mmHg AI P 1/2 [id number] TDI Lateral E' P. V6.76cm/sMedial E' P. V4.96cm/s Tricuspid Valve TR P. [id number] [id number] TR Peak Gr.[id number] LEFT VENTRICLE The left ventricle is normal size. There is normal left ventricular wall thickness. The left ventricu lar systolic function is normal and the ejection fraction is within normal range. The Ejection Fracti on is 55-60%. There is normal LV segmental wall motion. The left ventricular diastolic function and f illing is normal for age. No left ventricle thrombus noted on this study. RIGHT VENTRICLE The right ventricle is normal size. The right ventricular systolic function is normal. ATRIA The left atrium is moderately dilated. The right atrium size is normal. The interatrial septum is int act with no evidence for an atrial septal defect or patent foramen ovale as noted on 2-D or Doppler i maging. AORTIC VALVE The aortic valve is calcified but opens well. Doppler and Color Flow revealed trace to mild aortic re gurgitation. There is no significant aortic valvular stenosis. MITRAL VALVE The mitral valve is calcified but opens well. There is no evidence of mitral valve prolapse. There is no mitral valve stenosis. Doppler and Color-flow revealed trace mitral regurgitation. TRICUSPID VALVE The tricuspid valve is normal in structure and function. Doppler and Color Flow revealed trace to mil d tricuspid regurgitation. The PA pressure was estimated at 28 mmHg. There is no tricuspid valve sten osis. PULMONIC VALVE The pulmonic valve is not well visualized. Doppler and Color Flow revealed trace pulmonic valvular re gurgitation. There is no pulmonic valvular stenosis. GREAT VESSELS The aortic root is mildly enlarged. The ascending aorta is moderately dilated at 4.0 cm. The IVC is n ormal in size and collapses >50% with inspiration. PERICARDIAL EFFUSION There is no evidence of significant pericardial effusion. Critical Notification Critical Value: No <Conclusion> The left ventricular systolic function is normal and the ejection fraction is within normal range. Th e Ejection Fraction is 55-60%. There is normal LV segmental wall motion. The ascending aorta is moderately dilated at 4.0 cm. Signed by : Martin Catalan, Electronically Approved : 08/30/2020 09:03:23
== END 2020-08-29 17:45 | disposition home or self-care (01) | DRG 282 ==
LOC: ER 21:52 → 2 NORTH 08-28 01:05 → OBSVTOIN 08-28 07:14
PROVIDERS: ADMIT Internal Medicine; ATTEND Internal Medicine
PROC: 4A023N7 Measurement of Cardiac Sampling and Pressure, Left Heart, Percutaneous Approach (ICD-10-PCS; principal; 2020-08-28)
PROC: B2111ZZ Fluoroscopy of Multiple Coronary Arteries using Low Osmolar Contrast (ICD-10-PCS; 2020-08-28)
DX: I21.4 Non-ST elevation (NSTEMI) myocardial infarction (principal); Z20.822 Contact with and (suspected) exposure to COVID-19; E78.5 Hyperlipidemia, unspecified; I10 Essential (primary) hypertension; I25.10 Atherosclerotic heart disease of native coronary artery without angina pectoris; I48.0 Paroxysmal atrial fibrillation; Z87.891 Personal history of nicotine dependence
CPT/HCPCS: 36415; 71046; 80048; 80061; 84484; 85007; 85025; 87426; 93005; 93306; 93458; 96374; 96375; 99152; 99153; C1769; C1892; G0378; G0379; J1644; J2250; J2270; J3010; J3490; Q9967; U0003; 99285-25

== ENCOUNTER → 2020-09-03 | Outpatient (CLI) | payer OTHER ==
[2020-08-29 15:55] VITALS: BP 140/94
[~2020-09-03] MED LIST changes: +AMIO200T6 PO; +ATOR40TA59 PO; +CLOP75TA PO; +PANT40TA77 PO
== END ==
LOC: LAB 12:31
PROVIDERS: ATTEND Internal Medicine Cardiovascular Disease
DX: Z01.812 Encounter for preprocedural laboratory examination (principal); I48.91 Unspecified atrial fibrillation; Z20.828 Contact with and (suspected) exposure to other viral communicable diseases
CPT/HCPCS: U0003

== ENCOUNTER 2020-09-06 06:50 | Observation (INO) | payer OTHER ==
[~2020-09-06] VITALS: Ht 180.3 cm; Wt 100.3 kg
[~2020-09-06 06:50] MED LIST changes: -AMIO200T6 PO; -PANT40TA77 PO
[2020-09-06] MEDS ORDERED: MORPHINE SULFATE 2 MG/ML VIAL. IV PRN (07:00)
[2020-09-06] MEDS ORDERED: LIDOCAINE 1% PF 2 ML VIAL. ID PRN (07:00)
[2020-09-06] MEDS ORDERED: IV RINGERS,LACTATED 1000ML 1,000 ML IV SCH (07:00)
[2020-09-06] MEDS ORDERED: PROCHLORPERAZINE 10 MG/2 ML VIAL. IV PRN (07:00)
[2020-09-06] MEDS ORDERED: HYDROmorphone 2 MG/ML VIAL IV PRN (07:00)
[2020-09-06] MEDS ORDERED: ONDANSETRON PF 4 MG/2 ML VIAL. IV PRN (07:00)
[2020-09-06] MEDS ORDERED: fentaNYL PF VIAL 100 MCG/2 ML VIAL IV PRN ×2 (07:00)
[2020-09-06 07:45] LABS: BASO # 0.1 x10^3/uL (0.0-0.2); BASO % 1 % (0-3); EOS # 0.6 x10^3/uL (0.0-0.7); EOS % 8 % (0-3); HEMATOCRIT 44.5 % (39.0-53.0); HEMOGLOBIN 14.9 g/dL (13.0-17.5); LYMPH # 1.2 x10^3/uL (1.0-4.8); LYMPH % 16 % (24-48); MEAN CORPUSCULAR HEMOGLOBIN 30 pg (25-35); MEAN CORPUSCULAR HGB CONC 34 g/dL (31-37); MEAN CORPUSCULAR VOLUME 89 fL (79-100); MONO # 0.8 x10^3/uL (0.0-1.1); MONO % 11 % (0-9); NEUT # 4.8 x10^3/uL (1.8-7.7); NEUT % 65 % (31-73); PLATELET COUNT 239 x10^3/uL (140-400); RED CELL DISTRIBUTION WIDTH 14.3 % (11.5-14.5); WHITE BLOOD COUNT 7.5 x10^3/uL (4.0-11.0)
[2020-09-06 07:53] LABS: PROTHROMBIN TIME PATIENT 22.1 SEC (11.7-14.0)
[2020-09-06 07:54] LABS: CREATININE 1.1 mg/dL (0.7-1.3); GFR 67.4; POTASSIUM 4.4 mmol/L (3.5-5.1)
--- NOTE | 2020-09-06 08:02 | EKG ---
[facility] [address] [place] [address] Test Date: 2020-09-06 Test Time: 07:55:52 Pat Name: POLA REYES Department: Room: Gender: M Mapping Specialist: SHANNAN : 1955 Requested By: KIRT WALKER Order Number: [id number] Reading MD: Measurements Intervals [place] Rate: 78 P: AR: QRS: 26 QRSD: 78 T: 30 QT: 366 QTc: 421 Interpretive Statements IRREGULAR RHYTHM, NO P-WAVE FOUND OTHERWISE NORMAL ECG RI6.02 Compared to ECG 08/27/2020 21:58:22 Sinus rhythm no longer present Myocardial infarct finding no longer present
[2020-09-06] MEDS ORDERED: LIDOCAINE 2% TOPICAL JELLY 30GM TUBE. TP ONE ×2 (08:08→08:15)
[2020-09-06] MEDS ORDERED: LIDOCAINE 2% VISCOUS 15 ML SOLUTION. ONE (08:08)
[2020-09-06] MEDS ORDERED: BENZOCAINE ONE 20% MUCOSAL SPRAY. (08:08)
[2020-09-06] MEDS ORDERED: PROPOFOL 10 MG/ML (20ML) VIAL. IV ONE (08:09)
[2020-09-06] MEDS ORDERED: LIDOCAINE 2% VISCOUS 15 ML SOLUTION. SWSW ONE (08:15)
[2020-09-06] MEDS ORDERED: BENZOCAINE ONE 20% MUCOSAL SPRAY. MM (08:15)
[2020-09-06] MEDS ORDERED: DEXAMETHASONE SOD PHOS 4 MG/ML VIAL ONE (09:15)
[2020-09-06 10:51] VITALS: BP 148/89
--- NOTE | 2020-09-06 12:14 | PDOC2 ---
GI CONSULT Date of Service: DATE: 09/06/20 TIME: 12:13 Reason For Consult: esophageal varices HPI: HPI: 65 y/o male admitted after attempted HECTOR for spitting up red blood. H/o A Fib w/ recent ablation, then NSTEMI and cardiac cath (one small vessel CAD - no intervention) - discharged 08/29/20. On Plavix and Eliquis. He says he is able to swallow but it's painful - feels "swollen" in upper throat/neck. Throat/mouth fills up with bloody mucous and he must spit it out. Occasional reflux - says tends to occur before A Fib events - untreated. No h/o dysphagia. Some nausea w/ recent NSTEMI that resolved. No vomiting, abd pain, diarrhea, constipation, hematochezia, or melena. Has lost weight (says 20 pounds) since stopped drinking alcohol within the last 1-2 weeks. No previous EGD. Colonoscopy 05/22/[address] Flores for screening showed 5mm hyperplastic rectal polyps, 4mm adenomatous polyps in ascending colon, sigmoid diverticulosis, and non-bleeding internal hemorrhoids. Denies GB, liver, pancreas, and PUD history. Reports rectal fistula repair many years ago ( says when they were dating). No NSAIDs. Til recently drank 6 beers daily - stopped after NSTEMI. Mildly elevated bilirubin on past labs. Hgb and BUN were normal this morning. D/w nurse - pt has filled 3-4 small emesis basins w/ bloody secretions. PMH: PMH: NSTEMI, CAD, A Fib, HTN, HLD, COVID right ankle surgery, cardiac cath, cardiac ablation, rectal fistula repair FH: Family History: No pertinent hx (denies GI cancers) Social History: Smoke: Quit ALCOHOL: other (6 pack of beer daily - none sinc elast week) Drugs: None ROS: GEN: Denies fevers, chills, sweats HEENT: Denies blurred vision, sore throat CV: Denies chest pain RESP: Denies shortness of air, cough GI: Per HPI : Denies hematuria, dysuria ENDO: +weight loss NEURO: Denies confusion, dizziness MSK: Denies weakness, joint pain/swelling SKIN: Denies jaundice, pruritus Vitals: Vitals: Vital Signs Date Time Temp Pulse Resp B/P (MAP) Pulse Ox O2 Delivery O2 Flow Rate FiO2 09/06/20 10:51 98.4 93 16 148/89 (108) 97 Room Air 98.4 09/06/20 10:30 2 Labs: Labs: Laboratory Tests Test 09/06/20 07:20 White Blood Count 7.5 x10^3/uL (4.0-11.0) Red Blood Count 5.00 x10^6/uL (4.30-5.70) Hemoglobin 14.9 g/dL (13.0-17.5) Hematocrit 44.5 % (39.0-53.0) Mean Corpuscular Volume 89 fL (79-100) Mean Corpuscular Hemoglobin 30 pg (25-35) Mean Corpuscular Hemoglobin Concent 34 g/dL (31-37) Red Cell Distribution Width 14.3 % (11.5-14.5) Platelet Count 239 x10^3/uL (140-400) Neutrophils (%) (Auto) 65 % (31-73) Lymphocytes (%) (Auto) 16 % (24-48) Monocytes (%) (Auto) 11 % (0-9) Eosinophils (%) (Auto) 8 % (0-3) Basophils (%) (Auto) 1 % (0-3) Neutrophils # (Auto) 4.8 x10^3/uL (1.8-7.7) Lymphocytes # (Auto) 1.2 x10^3/uL (1.0-4.8) Monocytes # (Auto) 0.8 x10^3/uL (0.0-1.1) Eosinophils # (Auto) 0.6 x10^3/uL (0.0-0.7) Basophils # (Auto) 0.1 x10^3/uL (0.0-0.2) Prothrombin Time 22.1 SEC (11.7-14.0) Prothromb Time International Ratio 2.0 (0.8-1.1) Sodium Level 141 mmol/L (136-145) Potassium Level 4.4 mmol/L (3.5-5.1) Chloride Level 106 mmol/L (98-107) Carbon Dioxide Level 23 mmol/L (21-32) Anion Gap 12 (6-14) Blood Urea Nitrogen 14 mg/dL (8-26) Creatinine 1.1 mg/dL (0.7-1.3) Estimated GFR (Cockcroft-Gault) 67.4 Glucose Level 104 mg/dL (70-99) Calcium Level 9.0 mg/dL (8.5-10.1) Allergies: Coded Allergies: No Known Drug Allergies (Unverified , 09/06/20) Medications: Current Medications Medications (Trade) Dose Ordered Sig/Hilda Route PRN Reason Start Time Stop Time Status Last Admin Dose Admin Ringer's Solution 1,000 ml @ 30 mls/hr Q24H IV 09/06/20 07:00 09/06/20 18:59 09/06/20 07:51 Benzocaine (Hurricaine One) 2 spray 1X ONCE MM 09/06/20 08:15 09/06/20 08:16 DC 09/06/20 08:32 Lidocaine HCl (Xylocaine 2% Topical 30gm Tube) 1 isela 1X ONCE TP 09/06/20 08:15 09/06/20 08:16 DC 09/06/20 08:32 Lidocaine HCl (Viscous Lidocaine) 15 ml 1X ONCE SWSW 09/06/20 08:15 09/06/20 08:16 DC 09/06/20 08:32 Imaging: Imaging: HECTOR 09/06 pending PE: GEN: frequently spits red bloody mucous into emesis basin HEENT: Atraumatic, PERRL LUNGS: CTAB HEART: irregular ABD: NABS, S/ND/NT EXTREMITY: No edema SKIN: No rashes, no jaundice NEURO/PSYCH: A & O 3 A/P: A/P: Hematemesis/hemoptysis, odynophagia A Fib, recent NSTEMI, CAD - on Plavix and Eliquis Occasional reflux, weight loss CRC screen, h/o adenomatous polyps - UTD Diverticulosis, hemorrhoids H/o alcohol overuse COVID negative 09/03/20 -- D/w Dr. Flores - check CT chest and neck r/o leak/perf, also plan for EGD tomorrow. D/w pt, , and nurse. NPO, IV PPI. Monitor labs. INR is 2 - will give vit K if okay w/ cardiology - will discuss - reviewed all w/ nurse. Defer IVF, etc. to cardiology/primary. Called by nurse who cared for pt this morning in recovery - pt reported to him he has had a nosebleed that wouldn't resolved. Nurse also noted IV site leaking - needed re-taping. Okay per cardiology for vit K - ordered. SANJU NATION Sep 06, 2020 12:14
[2020-09-06] MEDS ORDERED: PANTOPRAZOLE IV PUSH 40 MG VIAL. IVP SCH (12:15)
[2020-09-06] MEDS ORDERED: IOHEXOL 300 MG/ML 100ML VIAL. IV ONE (12:30)
[2020-09-06 12:49] LABS: HEMATOCRIT 43.5 % (39.0-53.0); HEMOGLOBIN 14.2 g/dL (13.0-17.5)
--- NOTE | 2020-09-06 13:34 | RAD ---
EXAM: Neck and chest CT with intravenous contrast. HISTORY: Hemoptysis and pain status post HECTOR. TECHNIQUE: Computed tomographic images of the neck and chest were obtained following the administrati on of intravenous contrast. Multiplanar reformatting was performed. *One or more of the following individualized dose reduction techniques were utilized for this examina tion: 1. Automated exposure control. 2. Adjustment of the mA and/or kV according to patient size. 3. Use of iterative reconstruction technique. COMPARISON: 10/31/2017. FINDINGS: There is asymmetric soft tissue within the right greater than left hypopharynx, within this cirrhotic limits. No mass is seen. The airway is widely patent. There is no evidence of barotrauma. There is air and debris within the esophagus. No esophageal perforation is seen. The heart is upper n ormal in size. There is a dilated ascending aorta measuring 4.4 cm. There is no evidence of aortic di ssection. There is calcified plaque involving the coronary arteries. There are calcified mediastinal and hilar granulomas. No pathologically enlarged lymph node is seen. There is no pneumothorax or pleural effusion. There is biapical predominant pleural parenchymal scarr ing. There is pleural posterior dependent and basilar atelectasis. There is superimposed bilateral lo wer lobe groundglass opacity due to atelectasis or interstitial infiltrate. There is no consolidation . There is no suspicious noncalcified pulmonary nodule. There is no acute finding involving the upper abdomen. There are degenerative changes involving the s pine. There is no suspicious osseous lesion or acute osseous finding. There is cerebral volume loss a nd there are cerebral white matter changes likely due to chronic small vessel disease. The carotid bi furcations are widely patent. There is no neck lymphadenopathy. There is addition of a right thyroid nodule. IMPRESSION: 1. Slightly patulous esophagus containing gas and debris. There is no evidence of esophageal perforat ion. 2. Widely patent airway. 3. Dilated ascending aorta measuring 4.4 cm. 4. Bilateral pulmonary pleural-parenchymal scarring. There are superimposed bilateral lower lobe grou ndglass opacity due to atelectasis or interstitial infiltrate. No consolidation is seen. 5. Healed granulomatous disease. 6. Suspected small right thyroid nodule. This can be assessed with a thyroid sonogram. Electronically signed by: Irene Mar MD (09/06/2020 1:32 PM) [id number]
[2020-09-06] MEDS ORDERED: PHYTONADIONE 10 MG/ML AMPUL. SQ ONE (14:00)
--- NOTE | 2020-09-06 14:39 | CARD ---
MR#: [id number] Date of Study: 09/06/2020 Ordering Physician: MARTIN CATALAN, Referring Physician: MARTIN CATALAN, Tech: Jessica Mcclain APPROVED REPORT EXAM: Two-dimensional and M-mode echocardiogram with Doppler and color Doppler. INDICATION Pre-Op conversion RISK FACTORS Hypertension Hyperlipidemia Reason For Test : Rule out Intracardiac Thrombus. PROCEDURE After obtaining informed consent, patient underwent transesophageal echo in the PACU. Type of Sedation : General Anesthesia Sedation was administered by Jam Steve. Sedation was achieved with Propofol 400mg intravenously. Transesophageal probe was inserted and advanced into esophagus by Edwin Rizzo MD. Throughout the procedure, the blood pressure, pulse oximetry, cardiac rhythm, and rate were monitored . Critical Notification Critical Value: No <Conclusion> Patient presented for HECTOR guided cardioversion for his atrial fibrillation. After anesthesiology team administered intravenous propofol for deep sedation, several attempts were made to advance the HECTOR probe. We could not advance the probe past 25 cm kristal due to resistance and this was happening consistently. We cannot obtain any meaningful cardiac images at this level. Patient started having blood-tinged sputum and hence we decided to abort HECTOR with plans for GI work-u p followed by anticoagulation for 3 to 4 weeks and proceed with external cardioversion. Signed by : Edwin Rizzo, Electronically Approved : 09/06/2020 14:38:57
[2020-09-06 15:00] VITALS: BP 134/89
[2020-09-06] MEDS: LIDO:MAALOX 1:1 20 ML SINGLE DOSE. PO PRN ×2 (15:02→21:04)
[2020-09-06] MEDS: METOPROLOL IV PUSH 5 MG/5 ML VIAL. IVP SCH ×3 (15:03→23:39)
--- NOTE | 2020-09-06 16:42 | PDOC1 ---
H & P. DATE OF SERVICE: DATE: 09/06/20 TIME: 16:20 HPI: This is a 65 yo male, with a history of AFIB s/p recent ablation, who presented for outpatient HECTOR guided cardioversion due to recurrent AFIB. During HECTOR, probe was not able to be advanced past the 25cm kristal, due to resistance, despite several attempts. Unable to obtain any meaningful cardiac images from this level. Patient began having blood-tinged sputum and decision was made to abort HECTOR. Patient was admitted to the hospital with consultation to GI specialists. He denies any chest pain, palpitations, dizziness, diaphoresis, or nausea/vomiting. He continue to have hematemesis, hemoptysis. Is on Xarelto for stroke prophylaxis. INR is 2.0. Also has history of CAD being medically management and is on Plavix therapy. ROS: 14 point ROS conducted with pertinent positives noted above in HPI PMH: CAD; medically managed Hypertension Hyperlipidemia AFIB s/p recent cardiac ablation NSTEMI FAMILY HX: Hypertension SOCIAL HX: He is retired. Occasional alcohol and no tobacco or illicit drug use. Lives at home with . SURGICAL HX: Right ankle surgery Rectal fistula repair MEDS: Reviewed and reconciled ALLERGIES: Reviewed PE: Alert, oriented, no acute distress EOMI, sclera non-icteric Neck supple IRRR; tele AFIB. rate controlled. no murmur CTAB, no wheezes, crackles or rhonchi Soft, NT, ND, normal bowel sounds, No edema, cyanosis. Normal capillary refill. Calm, cooperative, mood/affect within normal limits ASSESSMENT & PLAN: 1. PAFIB; s/p recent ablation. Outpatient HECTOR guided CV scheduled today due to recurrent AFIB. Probe unable to be advanced past the 25cm kristal, due to resistance, despite several attempts. Unable to obtain any meaningful cardiac images from this level. CV deferred. On Xarelto for strok prophylaxis 2. Hematemesis/hemoptysis following attempted HECTOR; GI consulted 3. CAD; recent cath with one-vessel CAD involving a small caliber right posterior lateral branch. Medical managed. 4. Recent NSTEMI 5. Hypertension 6. Hyperlipidemia 7. Coagulopathy; INR 2.[address] neck, chest Resume secondary prevention Hold Xarelto, Plavix with hemoptysis, hematemesis Follow GI recs Okay to given vit K Metoprolol IV q6 for rate control while NPO Resume OAC when okay from a CV standpoint Plan for outpatient external CV following 3 to 4 week continuous anticoagulation therapy. Justifications for Admission Other Justification LAMONT KUHN APRN Sep 06, 2020 16:42
[2020-09-06] MEDS: PANTOPRAZOLE IV PUSH 40 MG VIAL. IVP SCH (18:08)
[2020-09-06 19:51] VITALS: BP 108/66
[2020-09-06 22:54] VITALS: BP 115/64
[2020-09-07 02:08] VITALS: BP 113/58
[2020-09-07 02:30] VITALS: BP 103/66
[2020-09-07 04:09] LABS: ALBUMIN 3.2 g/dL (3.4-5.0); CALCIUM 8.6 mg/dL (8.5-10.1); GFR 75.2; POTASSIUM 4.3 mmol/L (3.5-5.1); TOTAL BILIRUBIN 1.5 mg/dL (0.2-1.0); TOTAL PROTEIN 6.5 g/dL (6.4-8.2)
[2020-09-07] MEDS: LIDO:MAALOX 1:1 20 ML SINGLE DOSE. PO PRN ×2 (04:16→10:08)
[2020-09-07 05:00] LABS: HEMATOCRIT 41.4 % (39.0-53.0); HEMOGLOBIN 13.7 g/dL (13.0-17.5); RED BLOOD COUNT 4.65 x10^6/uL (4.30-5.70); RED CELL DISTRIBUTION WIDTH 14.2 % (11.5-14.5); WHITE BLOOD COUNT 11.5 x10^3/uL (4.0-11.0)
[2020-09-07] MEDS: METOPROLOL IV PUSH 5 MG/5 ML VIAL. IVP SCH ×2 (06:16→14:11)
[2020-09-07 07:00] VITALS: BP 126/66
[2020-09-07] MEDS ORDERED: IV RINGERS,LACTATED 1000ML 1,000 ML IV SCH (07:00)
[2020-09-07] MEDS: PANTOPRAZOLE IV PUSH 40 MG VIAL. IVP SCH (08:12)
--- NOTE | 2020-09-07 10:21 | NUR ---
SS following for discharge planning. SS reviewed pt chart and discussed with pt RN. Pt is from home with spouse and is currently on room air. COVID19 negative. Pt had outpatient HECTOR which was unsuccessful. Pt having EGD today. Pt is ad christian. Discharge plan is to home when medically ready. SS will continue to follow for discharge planning.
[2020-09-07 10:38] LABS: PROTHROMBIN TIME PATIENT 18.6 SEC (11.7-14.0)
[2020-09-07 11:00] VITALS: BP 107/68
[2020-09-07] MEDS ORDERED: IV RINGERS,LACTATED 1000ML 1,000 ML IV ONE (12:45)
[2020-09-07] MEDS ORDERED: LIDOCAINE 2% PF 5 ML VIAL. ONE (13:10)
[2020-09-07] MEDS ORDERED: PROPOFOL 10 MG/ML (20ML) VIAL. IV ONE (13:10)
--- NOTE | 2020-09-07 13:31 | PDOC4 ---
Operative Note Operative Note EGD Meds Propofol per anesthesia Pre-op dx odynophagia s/pTEE post-op dx hard palate ulcer and posterior oropharynx submucosal hematoma non-erosive gastritis Plan resume diet and meds as tolerated may release home once tolerating po and pain controlled KATHY GONZALEZ MD Sep 07, 2020 13:31
[2020-09-07 15:00] VITALS: BP 125/81
--- NOTE | 2020-09-07 15:09 | PDOC ---
CARDIO Progress Notes Date and Time Date of Service 09/07/20 Time of Evaluation 1210 Subjective Subjective: No Chest Pain, Other (scant blood tinged sputum) Vitals Vitals Vital Signs Date Time Temp Pulse Resp B/P (MAP) Pulse Ox O2 Delivery O2 Flow Rate FiO2 09/07/20 14:11 118 112/82 09/07/20 13:43 20 93 Room Air 09/07/20 13:27 97.5 4 97.5 Weight Weight [ ] Input and Output Intake and Output l Intake and Output 09/07/20 07:00 Intake Total 20 ml Output Total 655 ml Balance -635 ml Intake Oral 20 ml Output Urine Total 380 ml Emesis 100 ml Other 175 ml # Voids 4 Laboratory Labs Laboratory Tests Test 09/07/20 03:08 09/07/20 09:54 White Blood Count 11.5 x10^3/uL (4.0-11.0) Red Blood Count 4.65 x10^6/uL (4.30-5.70) Hemoglobin 13.7 g/dL (13.0-17.5) Hematocrit 41.4 % (39.0-53.0) Mean Corpuscular Volume 89 fL (79-100) Mean Corpuscular Hemoglobin 30 pg (25-35) Mean Corpuscular Hemoglobin Concent 33 g/dL (31-37) Red Cell Distribution Width 14.2 % (11.5-14.5) Platelet Count 235 x10^3/uL (140-400) Sodium Level 140 mmol/L (136-145) Potassium Level 4.3 mmol/L (3.5-5.1) Chloride Level 106 mmol/L (98-107) Carbon Dioxide Level 21 mmol/L (21-32) Anion Gap 13 (6-14) Blood Urea Nitrogen 21 mg/dL (8-26) Creatinine 1.0 mg/dL (0.7-1.3) Estimated GFR (Cockcroft-Gault) 75.2 BUN/Creatinine Ratio 21 (6-20) Glucose Level 143 mg/dL (70-99) Calcium Level 8.6 mg/dL (8.5-10.1) Total Bilirubin 1.5 mg/dL (0.2-1.0) Aspartate Amino Transf (AST/SGOT) 19 U/L (15-37) Alanine Aminotransferase (ALT/SGPT) 36 U/L (16-63) Alkaline Phosphatase 71 U/L (46-116) Total Protein 6.5 g/dL (6.4-8.2) Albumin 3.2 g/dL (3.4-5.0) Albumin/Globulin Ratio 1.0 (1.0-1.7) Prothrombin Time 18.6 SEC (11.7-14.0) Prothromb Time International Ratio 1.6 (0.8-1.1) Physical Exam HEENT: Neck Supple W Full Motion LUNGS: Clear to Auscultation Heart: irregularly irregular (AFIB, flutter) Abdomen: Soft N/T Extremities: No Edema Neurology: alert, oriented, follow commands Assessment Assessment 1. PAFIB; s/p recent ablation. Unable to perform HECTOR guided CV. Probe unable to be advanced past the 25cm kristal, due to resistance, despite several attempts. Unable to obtain any meaningful cardiac images from this level. CV deferred. On Xarelto for stroke prophylaxis 2. Hematemesis/hemoptysis following attempted HECTOR; GI consulted 3. CAD; recent cath with one-vessel CAD involving a small caliber right posterior lateral branch. Medical managed. 4. Recent NSTEMI 5. Hypertension; controlled 6. Hyperlipidemia 7. Coagulopathy; INR 2.0. s/p vit K Recommendations Secondary prevention Hold Xarelto, Plavix with hemoptysis, hematemesis Follow GI recs; EGD today. Metoprolol IV q6 for rate control while NPO Resume OAC when okay from a CV standpoint Plan for outpatient external CV following 3 to 4 week continuous anticoagulation therapy. Justicifation of Admission Dx: Justifications for Admission: Justification of Admission Dx: Yes LAMONT KUHN APRN Sep 07, 2020 15:09
--- NOTE | 2020-09-07 16:47 | NUR ---
Anticoagulants to be held until 09/08/[address]avia [address] Ricketts
[2020-09-07] MEDS ORDERED: PANT40TA77 PO (16:48)
--- NOTE | 2020-09-07 16:48 | DISCH ---
DISCHARGE INSTRUCTIONS Condition on Discharge Condition on Discharge: Stable Activity After Discharge Activity Instructions for Disc: No restrictions, Activity as tolerated Weight Bearing Status after Di: No restrictions, As tolerated Diet after Discharge Diet after Discharge: Cardiac Diet Texture: Regular Liquid Texture: Thin Liquid Checks after Discharge Checks after discharge: Check blood press - daily, Check your Temp as needed Contacting the DRCat after DC Call your doctor for: If your condition worsens LAMONT KUHN APRN Sep 07, 2020 16:48
--- NOTE | 2020-09-07 16:51 | PDOC3 ---
Discharge Summary Visit Information Date of Admission: Sep 06, 2020 Date of Discharge: Sep 07, 2020 Admitting Diagnosis Comment: 1. PAFIB 2. Hematemesis/hemoptysis 3. CAD 4. Recent NSTEMI 5. Hypertension 6. Hyperlipidemia Final Diagnosis 1. PAFIB 2. Hematemesis/hemoptysis 3. CAD 4. Recent NSTEMI 5. Hypertension 6. Hyperlipidemia Brief Hospital Course Allergies Allergies Coded Allergies Type Severity Reaction Last Updated Verified No Known Drug Allergies 09/07/20 No Vital Signs Vital Signs Date Time Temp Pulse Resp B/P (MAP) Pulse Ox O2 Delivery O2 Flow Rate FiO2 09/07/20 15:00 97.8 118 18 125/81 (96) 96 Room Air 97.8 09/07/20 13:27 4 Lab Results Laboratory Tests Test 09/06/20 07:20 09/06/20 12:43 09/07/20 03:08 09/07/20 09:54 White Blood Count 7.5 x10^3/uL (4.0-11.0) 11.5 x10^3/uL (4.0-11.0) Red Blood Count 5.00 x10^6/uL (4.30-5.70) 4.65 x10^6/uL (4.30-5.70) Hemoglobin 14.9 g/dL (13.0-17.5) 14.2 g/dL (13.0-17.5) 13.7 g/dL (13.0-17.5) Hematocrit 44.5 % (39.0-53.0) 43.5 % (39.0-53.0) 41.4 % (39.0-53.0) Mean Corpuscular Volume 89 fL (79-100) 89 fL (79-100) Mean Corpuscular Hemoglobin 30 pg (25-35) 30 pg (25-35) Mean Corpuscular Hemoglobin Concent 34 g/dL (31-37) 33 g/dL (31-37) 33 g/dL (31-37) Red Cell Distribution Width 14.3 % (11.5-14.5) 14.2 % (11.5-14.5) Platelet Count 239 x10^3/uL (140-400) 235 x10^3/uL (140-400) Neutrophils (%) (Auto) 65 % (31-73) Lymphocytes (%) (Auto) 16 % (24-48) Monocytes (%) (Auto) 11 % (0-9) Eosinophils (%) (Auto) 8 % (0-3) Basophils (%) (Auto) 1 % (0-3) Neutrophils # (Auto) 4.8 x10^3/uL (1.8-7.7) Lymphocytes # (Auto) 1.2 x10^3/uL (1.0-4.8) Monocytes # (Auto) 0.8 x10^3/uL (0.0-1.1) Eosinophils # (Auto) 0.6 x10^3/uL (0.0-0.7) Basophils # (Auto) 0.1 x10^3/uL (0.0-0.2) Prothrombin Time 22.1 SEC (11.7-14.0) 18.6 SEC (11.7-14.0) Prothromb Time International Ratio 2.0 (0.8-1.1) 1.6 (0.8-1.1) Sodium Level 141 mmol/L (136-145) 140 mmol/L (136-145) Potassium Level 4.4 mmol/L (3.5-5.1) 4.3 mmol/L (3.5-5.1) Chloride Level 106 mmol/L (98-107) 106 mmol/L (98-107) Carbon Dioxide Level 23 mmol/L (21-32) 21 mmol/L (21-32) Anion Gap 12 (6-14) 13 (6-14) Blood Urea Nitrogen 14 mg/dL (8-26) 21 mg/dL (8-26) Creatinine 1.1 mg/dL (0.7-1.3) 1.0 mg/dL (0.7-1.3) Estimated GFR (Cockcroft-Gault) 67.4 75.2 Glucose Level 104 mg/dL (70-99) 143 mg/dL (70-99) Calcium Level 9.0 mg/dL (8.5-10.1) 8.6 mg/dL (8.5-10.1) BUN/Creatinine Ratio 21 (6-20) Total Bilirubin 1.5 mg/dL (0.2-1.0) Aspartate Amino Transf (AST/SGOT) 19 U/L (15-37) Alanine Aminotransferase (ALT/SGPT) 36 U/L (16-63) Alkaline Phosphatase 71 U/L (46-116) Total Protein 6.5 g/dL (6.4-8.2) Albumin 3.2 g/dL (3.4-5.0) Albumin/Globulin Ratio 1.0 (1.0-1.7) Laboratory Tests Test 09/07/20 03:08 09/07/20 09:54 White Blood Count 11.5 x10^3/uL (4.0-11.0) Red Blood Count 4.65 x10^6/uL (4.30-5.70) Hemoglobin 13.7 g/dL (13.0-17.5) Hematocrit 41.4 % (39.0-53.0) Mean Corpuscular Volume 89 fL (79-100) Mean Corpuscular Hemoglobin 30 pg (25-35) Mean Corpuscular Hemoglobin Concent 33 g/dL (31-37) Red Cell Distribution Width 14.2 % (11.5-14.5) Platelet Count 235 x10^3/uL (140-400) Sodium Level 140 mmol/L (136-145) Potassium Level 4.3 mmol/L (3.5-5.1) Chloride Level 106 mmol/L (98-107) Carbon Dioxide Level 21 mmol/L (21-32) Anion Gap 13 (6-14) Blood Urea Nitrogen 21 mg/dL (8-26) Creatinine 1.0 mg/dL (0.7-1.3) Estimated GFR (Cockcroft-Gault) 75.2 BUN/Creatinine Ratio 21 (6-20) Glucose Level 143 mg/dL (70-99) Calcium Level 8.6 mg/dL (8.5-10.1) Total Bilirubin 1.5 mg/dL (0.2-1.0) Aspartate Amino Transf (AST/SGOT) 19 U/L (15-37) Alanine Aminotransferase (ALT/SGPT) 36 U/L (16-63) Alkaline Phosphatase 71 U/L (46-116) Total Protein 6.5 g/dL (6.4-8.2) Albumin 3.2 g/dL (3.4-5.0) Albumin/Globulin Ratio 1.0 (1.0-1.7) Prothrombin Time 18.6 SEC (11.7-14.0) Prothromb Time International Ratio 1.6 (0.8-1.1) Brief Hospital Course Mr. Knutson is a 65 yo male, with a history of AFIB s/p recent ablation, who presented for outpatient HECTOR guided cardioversion due to recurrent AFIB. During HECTOR, probe met resistance and was not able to be advanced past the 25cm kristal, despite several attempts. Unable to obtain any meaningful cardiac images from th is level. Patient began having blood-tinged sputum and decision was made to abort HECTOR. Patient was admitted to the hospital with consultation to GI specialists. CT of the head and neck noted widely patent airway. No evidence of esophageal perforation. Hemoptysis resolved. He underwent EGD that noted hard palate ulcer and posterior oropharynx submucosal hematoma. Non-erosive gastritis was also noted. Oral meds and diet was resumed without difficulty. Will resume OAC and Plavix in am. Will plan for external cardioversion in 3-4 weeks on an outpatient basis. Follow up in our office with Dr. Ricketts as scheduled. Discharge Information Condition at Discharge: Stable Follow Up: Weeks (4) Disposition/Orders: D/C to Home Scheduled Atorvastatin Calcium (Atorvastatin Calcium) 40 Mg Tablet, 40 MG PO QHS for CAD, #30 Ref 2 Prescribed by: MIKAYLA LOGNORIA MD on 08/29/201717 Last Taken: Unknown Dose on 09/05/20 Last Action: Continued on 09/07/20 1601 by RODY PINEDO Clopidogrel Bisulfate (Clopidogrel) 75 Mg Tablet, 75 MG PO DAILYWBKFT for CAD, #30 Ref 3 Prescribed by: MIKAYLA LONGORIA MD on 08/29/201717 Last Taken: Unknown Dose on 09/04/20 Last Action: Continued on 09/07/20 1601 by RODY PINEDO Diltiazem Hcl (Diltiazem Sr 12HR) 60 Mg Cap.er.12h, 60 MG PO BID for hypertension, #60 Ref 2 Prescribed by: MIKAYLA LONGORIA MD on 08/29/201717 Last Taken: Unknown Dose on 09/06/20 0500 Last Action: Converted on 09/07/20 160 by RODY PINEDO Metoprolol Succinate (Metoprolol Succinate ( Xl )) 100 Mg Tab.er.24h, 100 MG PO BID for FOR HYPERTENSION, #30 Ref 0 (Reported) Entered as Reported by: CARMEN MÁRQUEZ on 09/03/20 1403 Last Taken: Unknown Dose on 09/06/20 0500 Last Action: Continued on 09/07/20 1601 by RODY PINEDO Pantoprazole Sodium (Protonix ) 40 Mg Tablet.dr, 40 MG PO DAILYAC for GERD for 30 Days, #30 Ref 2 Prescribed by: LAMONT KUHN APRN on 09/07/20 1648 Rivaroxaban (Xarelto) 20 Mg Tablet, 20 MG PO DAILY for ATRIAL FIB, #30 Ref 2 Prescribed by: MIKAYLA LONGORIA MD on 08/29/20 1718 Last Taken: Unknown Dose on 09/06/20 0500 Last Action: Converted on 09/07/201600 by RODY PINEDO Justicifation of Admission Dx: Justifications for Admission: Justification of Admission Dx: Yes LAMONT KUHN APRN Sep 07, 2020 16:51
[2020-09-07] MEDS ORDERED: RIVAROXABAN 10 MG TABLET. PO SCH (17:00)
--- NOTE | 2020-09-07 17:52 | NUR ---
Discharge Note: POLA REYES Discharge instructions and discharge home medications reviewed with Patient and a copy given. All questions have been answered and understanding verbalized. The following instructions and handouts were given: HECTOR, A-fib, Protonix Patient discharged to home with via self care and private vehicle. Dr. Bunch advised he would follow up with pt on 09/08/[address] Bunch and Tavia, pt was advised to hold anticoagulation until 09/08/20
[2020-09-07] MEDS ORDERED: dilTIAZem HCL 30 MG TABLET PO SCH (21:00)
[2020-09-07] MEDS ORDERED: ATORVASTATIN CALCIUM 40 MG TABLET. PO SCH (21:00)
[2020-09-07] MEDS ORDERED: METOPROLOL SUCC 24HR ER 100 MG TAB.ER.24H. PO SCH (21:00)
[2020-09-08] MEDS ORDERED: CLOPIDOGREL BISULFATE 75 MG TABLET PO SCH (08:00)
== END 2020-09-07 17:45 | disposition home or self-care (01) ==
LOC: SURG 06:50 → 2 NORTH 10:20
PROVIDERS: ADMIT Internal Medicine Cardiovascular Disease; ATTEND Internal Medicine Cardiovascular Disease
PROC: 0D998ZX Drainage of Duodenum, Via Natural or Artificial Opening Endoscopic, Diagnostic (ICD-10-PCS; principal; 2020-09-06 08:30)
DX: I48.0 Paroxysmal atrial fibrillation (principal); K92.0 Hematemesis; I25.10 Atherosclerotic heart disease of native coronary artery without angina pectoris; I10 Essential (primary) hypertension; I21.4 Non-ST elevation (NSTEMI) myocardial infarction; I25.2 Old myocardial infarction; K21.9 Gastro-esophageal reflux disease without esophagitis; K29.70 Gastritis, unspecified, without bleeding; K57.30 Diverticulosis of large intestine without perforation or abscess without bleeding; D68.9 Coagulation defect, unspecified; E78.5 Hyperlipidemia, unspecified; I85.00 Esophageal varices without bleeding; R13.10 Dysphagia, unspecified; R17 Unspecified jaundice; Z86.010 Personal history of colon polyps; Z98.61 Coronary angioplasty status; Z98.890 Other specified postprocedural states; Z87.891 Personal history of nicotine dependence
CPT/HCPCS: 36415; 43235; 70491; 71260; 80048; 80053; 85014; 85018; 85025; 85027; 85610; 92960; 93005; 93312; 96372; 96374; 96375; 96376; C9113; G0378; G0379; J1100; J2704; J3430; J3490; J7120; Q9967

== ENCOUNTER 2020-10-08 10:29 | Day surgery (SDC) | payer OTHER ==
[~2020-10-08 10:29] MED LIST changes: +AMIO200T6 PO; +IV RINGERS,LACTATED 1000ML 1,000 ML IV SCH; +PANT40TA77 PO
--- NOTE | 2020-10-08 10:55 | EKG ---
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
[2020-10-08 11:15] LABS: CALCIUM 8.7 mg/dL (8.5-10.1); CREATININE 1.3 mg/dL (0.7-1.3); GFR 55.6; POTASSIUM 4.2 mmol/L (3.5-5.1)
[2020-10-08] MEDS ORDERED: PROPOFOL 50 ML IV ONE (11:41)
[2020-10-08] MEDS ORDERED: LIDOCAINE 2% PF 5 ML VIAL. ONE (11:41)
--- NOTE | 2020-10-08 11:48 | EKG ---
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
[2020-10-08 12:23] VITALS: BP 119/78
--- NOTE | 2020-10-08 16:45 | PDOC4 ---
Procedure Note Procedure: Cardioversion Indications: Atrial fibrillation Complications: None Procedural Details: The patient is a 65-year-old male who was found to have atrial fibrillation. He was continued on rate control medicines and anticoagulation for more than 4 weeks. Morning lab was acceptable. Risks and benefits of the cardioversion were discussed with the patient and he agreed to proceed. Anesthesiology reviewed the patient's. The patient was prepared for the procedure in the usual manner. After acceptable level of anesthesia was obtained the patient was cardioverted from atrial fibrillation to a normal sinus rhythm with 200 J of synchronized energy. There were no immediate complications. Successful cardioversion of atrial fibrillation to sinus rhythm. Conclusions: Successful cardioversion of atrial fibrillation to sinus rhythm. KIRT WALKER MD Oct 08, 2020 16:45
== END 2020-10-08 12:56 | disposition home or self-care (01) ==
LOC: SURG 10:29
PROVIDERS: ATTEND Internal Medicine Cardiovascular Disease
DX: I48.91 Unspecified atrial fibrillation (principal); I10 Essential (primary) hypertension; E78.00 Pure hypercholesterolemia, unspecified; E66.9 Obesity, unspecified; I25.10 Atherosclerotic heart disease of native coronary artery without angina pectoris; Z87.891 Personal history of nicotine dependence; Z79.899 Other long term (current) drug therapy; Z98.890 Other specified postprocedural states; Z72.89 Other problems related to lifestyle
CPT/HCPCS: 36415; 80048; 83735; 92960; 93005; J2704